=== PATIENT | female | born 1930 | race Caucasian/White ===

== ENCOUNTER 2017-06-16 19:30 | Inpatient (IN) ==
[2017-06-16 21:09] LABS: MANUAL DIFF NEEDED? NO
[2017-06-16 21:12] LABS: BASO% 0.2 % (0.0-0.8); EOS# 0.08 X1000 (0.0-0.7); EOS% 0.4 % (0.0-10.0); HEMATOCRIT 34.6 % (37.0-47.0); HEMOGLOBIN 11.1 g/dL (12.0-16.0); IMM GRAN# 0.04 X1000 (0.0-0.04); IMM GRAN% 0.2 % (0.0-0.5); LYMPH# 1.57 X1000 (1.2-3.4); LYMPH% 8.6 % (20.5-51.1); MCH 27.1 PG (27-31); MCHC 32.1 g/dL (33-37); MCV 84.4 FL (81-99); MONO# 1.02 X1000 (0.11-0.59); MONO% 5.6 % (1.7-9.3); MPV 9.9 FL (7.4-10.4); PLT 246 X1000 (130-400)
[2017-06-16 21:38] LABS: ALBUMIN 3.7 g/dL (3.5-5.0); CALCIUM 9.4 mg/dL (8.8-10.2); POTASSIUM 5.9 mmol/L (3.5-5.1); TOTAL BILIRUBIN 0.3 mg/dL (0.20-1.00); TOTAL PROTEIN 7.3 g/dL (6.3-8.3)
[2017-06-16] MEDS ORDERED: NS 1,000 ML IV ONE ×2 (22:02→23:22)
[2017-06-16] MEDS ORDERED: DERMABOND ONE (22:03)
--- NOTE | 2017-06-16 22:06 | Diag Imaging Result Doc PS360 ---
HEAD/C-SPINE W/O CONTRAST - 06/16/2017 INDICATION: head injury/pain TECHNIQUE: A CT dose reduction protocol was used. COMPARISON: 12/22/2015 FINDINGS: Head CT: There is a small forehead scalp contusion. No intracranial mass or hemorrhage. The ventricles and sulci are grossly normal. The sinuses are clear. Cervical spine: There is advanced cervical spondylosis. There is no acute injury or change from prior. IMPRESSION: 1. Small forehead scalp contusion but no intracranial injury. 2. No injury to the cervical spine. Electronically signed by David Carmen 06/16/2017 10:03 PM
[2017-06-16] MEDS ORDERED: MORPHINE IV ONE (22:09)
[2017-06-16] MEDS ORDERED: ZOFRAN IV ONE (22:09)
--- NOTE | 2017-06-16 22:16 | Diag Imaging Result Doc PS360 ---
LUMBAR SPINE 2-VIEWS - 06/16/2017 INDICATION: fall with back injury TECHNIQUE: COMPARISON: None FINDINGS: Alignment is anatomic. No evidence of fracture or subluxation. There is advanced degeneration at L5-S1 with severe narrowing, sclerosis, and vacuum disc phenomenon. There are some minimal degenerative osteophytes throughout the thoracolumbar spine diffusely. There is degeneration of the sacroiliac joints bilaterally. IMPRESSION: Degenerative changes. No acute disease. Electronically signed by David Carmen 06/16/2017 10:14 PM
[2017-06-16 23:06] LABS: BILIRUBIN URINE NEGATIVE (NEGATIVE); BLOOD URINE TRACE (NEGATIVE); CLARITY SL. CLOUDY (CLEAR); COLOR YELLOW; GLUCOSE URINE NEGATIVE (NEGATIVE); LEUKOCYTES URINE 2+ (NEGATIVE); NITRITE URINE NEGATIVE (NEGATIVE); PROTEIN URINE 1+(30 mg/dL) mg/dL (NEGATIVE); UROBILINOGEN URINE NORMAL
[2017-06-16 23:14] LABS: URINE WBC TNTC /HPF (<10)
[2017-06-16 23:15] LABS: URINE CULTURE PL NEEDED? YES; URINE EPITHELIAL CELLS <10 /HPF (<10); URINE RBC <10 /HPF (<10)
[2017-06-16 23:16] LABS: URINE SMALL ROUND CELLS TRANSITIONAL PRESENT; URINE SOURCE CLEAN CATCH
[2017-06-16] MEDS ORDERED: ROCEPHIN 1 GM/NS 1 GM/50 ML IVPB IV ONE (23:18)
[2017-06-16] MEDS ORDERED: MORPHINE IV PRN (23:24)
[2017-06-16] MEDS ORDERED: ZOFRAN IV PRN (23:24)
--- NOTE | 2017-06-17 02:34 | PROVIDER DOCUMENTATION ---
This chart was entered by Vivienne Noriega Scribe, acting as scribe for Javier Morejon MD. HPI-Musculoskeletal Pain/Inj - GENERAL Chief Complaint: Fall Stated Complaint: FALL Time Seen by Provider: 06/16/17 20:37 Source: patient - HX OF PRESENT ILLNESS-MUSKULOSKELTAL Nature of Presenting Problem: 87 Y/O F presents to ER with the complain of falling and hitting his back to nightstand this am. pt states that she was going to bathroom and fell. pt state that she is having pain in her neck, bilat arms and back. pt states that she took medication at home after she fell but later she started to hurting again and decided to come to ER for any injury. Onset/Duration: this morning Timing: still present - FALL INJURY Location of Pain/Injury: reports: neck, upper extremity, back Review of Systems - Adult - REVIEW OF SYSTEMS - ADULT Constitutional: reports: no symptoms reported Eyes: reports: other (R eye laceration). denies: double vision Ears, Nose, Mouth & Throat: reports: no symptoms reported Cardiovascular: reports: no symptoms reported Respiratory: reports: no symptoms reported Gastrointestinal: reports: nausea. denies: diarrhea, vomiting Genitourinary: reports: no symptoms reported Musculoskeletal: reports: back pain, neck pain, other (bilar arm pain) Integumentary: reports: no symptoms reported Neurological: reports: no symptoms reported Psychiatric: reports: no symptoms reported Endocrine: reports: no symptoms reported Hematologic/Lymphatic: reports: no symptoms reported Allergic/Immunologic: reports: no symptoms reported All Other Systems: Reviewed and Negative Past History - Adult - PAST MEDICAL HISTORY-ADULT Review of Records: reports: Old Records Reviewed, Nursing Assessment Review Major Childhood Illnesses: reports: denies history Cardiovascular: reports: CAD, HTN, hyperlipidemia, [place] Respiratory: reports: denies history Gastrointestinal: reports: cancer, GERD Obstetrical/Gynecological: reports: denies history Genitourinary: reports: kidney disease Musculoskeletal: reports: arthritis Neurological: reports: denies history Endocrine/Immune: reports: denies history Other Conditions: reports: denies history - PRIOR SURGERIES/PROCEDURES Surgical/Procedure History: reports: appendectomy, cholecystectomy, hysterectomy , BTL, orthopedic (extremity) (LT foot), joint replacement (total knee), 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 negative: decresed ROM, swelling Respiratory: chest non-tender, lungs clear Cardiovascular: normal peripheral pulses, regular rate, rhythm Abdominal Exam: non tender, soft Back Exam: CVA tenderness. negative: no vertebral tenderness Extremity: tenderness (R leg and bilat arms). negative: swelling Integumentary: normal color, warm/dry Neurologic: gas welder II-XII nml as tested, grossly normal, no motor/sensory deficits Psych/Mental Status: normal mood/affect, normal thought content, normal thought process, oriented x 3 Progress - PLAN OF CARE/RESULTS Progress/Plan/Lab Results: Vital Signs - 8 hr 06/16/17 20:24 06/16/17 21:41 06/16/17 23:22 Temperature 99.3 F 99.6 F Pulse Rate 54 L 57 L 59 L Respiratory Rate 18 18 18 Blood Pressure 148/65 159/066 151/67 O2 Sat by Pulse Oximetry 97 99 Laboratory Results - last 24 hr 06/16/17 06/16/17 06/16/17 21:06 21:06 22:46 WBC 18.27 H RBC 4.10 L Hgb 11.1 L Hct 34.6 L MCV 84.4 MCH 27.1 MCHC 32.1 L RDW Std Deviation 15.3 H Plt Count 246 MPV 9.9 Immature Gran % (Auto) 0.2 Neut % (Auto) 85.0 H Lymph % (Auto) 8.6 L [place] % (Auto) 5.6 Eos % (Auto) 0.4 Baso % (Auto) 0.2 Immature Gran # (Auto) 0.04 Neut # (Auto) 15.53 H Lymph # (Auto) 1.57 [place]calfe # (Auto) 1.02 H Eos # (Auto) 0.08 Baso # (Auto) 0.03 Sodium 136 Potassium 5.9 H Chloride 106 Carbon Dioxide 20 L Anion Gap 11 BUN 58 H Creatinine 2.4 H Estimated GFR/1.73 m2 19 BUN/Creatinine Ratio 24 Glucose 137 H Calculated Osmolality 290 Calcium 9.4 Total Bilirubin 0.30 AST 18 ALT 15 Alkaline Phosphatase 77 Total Protein 7.3 Albumin 3.7 Globulin 4.0 Albumin/Globulin Ratio 1.0 Urine Source CLEAN CATCH Urine Color YELLOW Urine Clarity SL. CLOUDY A Urine pH 5.0 Ur Specific [place] 1.010 Urine Protein 1+(30 mg/dL) A Urine Ketones NEGATIVE Urine Blood TRACE Urine Nitrite NEGATIVE Urine Bilirubin NEGATIVE Urine Urobilinogen NORMAL Urine Microscopic RBC <10 Urine WBC 2+ A Urine Microscopic WBC TNTC A Ur Epithelial Cells <10 Small Round Cells TRANSITIONAL PRESENT Urine Bacteria 4+ Urine Yeast PRESENT Urine Glucose NEGATIVE Orders Category Date Time Status Admit - [facility] Routine AdmDCTranf 06/16/17 23:22 Ordered Activity - Bed Rest with BRP ORDERED Care 06/16/17 23:24 Active Vital Signs Order ARRIVAL TO ROOM Care 06/16/17 23:22 Completed Regular Diet Diet 06/16/17 23:24 Active HEAD/C-SPINE W/O CONTRAST [CT] Stat Exams 06/16/17 20:42 Completed LUMBAR SPINE 2-VIEWS [RAD] Stat Exams 06/16/17 20:43 Completed CBC WITH ELECTRONIC DIFF [HEME] Stat Lab 06/16/17 21:06 Completed CMP [COMPREHENSIVE METABOLIC PANEL] [CHEM] Stat Lab 06/16/17 21:06 Completed URINE CULTURE [RM] Routine Lab 06/16/17 23:16 Ordered ua [URINALYSIS PL W/POSS RFLX CULT] [URINALYSIS] Stat Lab 06/16/17 22:46 Completed 0.9% Sodium Chloride Inj [Ns] 1,000 ml Med 06/16/17 23:22 Active IV 75 mls/hr 0.9% Sodium Chloride Inj [Ns] 1,000 ml Med 06/16/17 22:02 Discontinued IV 999 mls/hr CefTRIAXONE 1 GM/NS [Rocephin 1 gm/Ns] Med 06/16/17 23:18 Discontinued 1 gm in 50 ml IV NOW Cyanoacrylate Tissue Adhesive [Dermabond] Med 06/16/17 22:03 Discontinued 1 each .ROUTE .STK-MED ONE Morphine Med 06/16/17 23:24 Active 2 mg IV Q2H PRN PRN Morphine Med 06/16/17 22:09 Discontinued 4 mg IV NOW ONE Ondansetron [Zofran] Med 06/16/17 22:09 Discontinued 4 mg IV NOW ONE Ondansetron [Zofran] Med 06/16/17 23:24 Active 4 mg IV Q4H PRN PRN EKG [EKG] Stat Ther 06/16/17 20:42 Ordered Transfer/Admit Order [TRANSFER] Routine Transfer 06/16/17 23:25 Completed Result Diagrams: 06/16/17 21:06 06/16/17 21:06 - XRAY 1 XRAY Study: Lumbar Spine Impression: Normal XRAY Interpretation: degenerative chanhes no acute disease by radiologist - CT/MRI 1 CT Study: Cervical Spine, Head Impression: See EMR Report CT Results: small forehead scalp contusion but no intracranial injurynoinjury Cindi-spine - CONSULTS/PCP/HOSPITALIST Notification #1 *Consult/PCP/Hospitalist*: Dr. Bella Time Discussed: 23:20 Reason/Comments: discussed about pt Consult Disposition: Admit Procedures - LACERATION/WOUND REPAIR/FB Right Eye Wound Length: 1.5 cm Wound's Depth, Shape: superficial Wound Repaired with: Dermabond Sterile Dressing Applied?: Yes Splint Applied?: No Sling Applied?: No Post Procedure Neurovascular Exam: Intact Departure - Departure Date of Disposition Decision: 06/16/17 Time of Disposition Decision: 23:22 DIAGNOSIS: Acute renal failure syndrome, Hyperkalemia, UTI (urinary tract infection), Forehead laceration Disposition: ADMITTED INPATIENT 09 Certified Medical Emergency: Emergent Condition: Good - Critical Care Note This patient required my direct & personal management of CC.: No This chart was documented by the indicated scribe, (Vivienne Noriega Scribe) and accurately reflects the services I performed and decisions made by me, Javier Morejon MD, as attested by the provider's signature.
[2017-06-17] MEDS: TYLENOL PO PRN ×2 (03:40→10:40)
[2017-06-17] MEDS ORDERED: MORPHINE IV PRN (09:57)
[2017-06-17 09:59] LABS: MANUAL DIFF NEEDED? NO
[2017-06-17] MEDS ORDERED: NEXIUM PO SCH (10:00)
[2017-06-17 10:02] LABS: BASO% 0.1 % (0.0-0.8); EOS# 0.06 X1000 (0.0-0.7); EOS% 0.5 % (0.0-10.0); HEMATOCRIT 33.4 % (37.0-47.0); HEMOGLOBIN 10.2 g/dL (12.0-16.0); IMM GRAN# 0.02 X1000 (0.0-0.04); IMM GRAN% 0.2 % (0.0-0.5); LYMPH# 1.77 X1000 (1.2-3.4); LYMPH% 15.1 % (20.5-51.1); MCH 26.1 PG (27-31); MCHC 30.5 g/dL (33-37); MCV 85.4 FL (81-99); MONO# 0.91 X1000 (0.11-0.59); MONO% 7.8 % (1.7-9.3); NEUT% 76.3 % (42.2-75.2); PLT 222 X1000 (130-400); RBC 3.91 XMIL (4.2-5.4)
[2017-06-17] MEDS: BYSTOLIC PO SCH (10:31)
[2017-06-17] MEDS: APRESOLINE PO SCH ×2 (10:31→20:49)
[2017-06-17] MEDS: ROCEPHIN 1 GM/NS 1 GM/50 ML IVPB IV SCH (10:31)
[2017-06-17] MEDS: LOVAZA PO SCH ×2 (10:31→20:50)
[2017-06-17 10:32] LABS: CALCIUM 9.2 mg/dL (8.8-10.2)
[2017-06-17] MEDS: NS 1,000 ML IV SCH ×2 (10:40→12:06)
--- NOTE | 2017-06-17 14:25 | HISTORY AND PHYSICAL ---
PRIMARY CARE PHYSICIAN: Dr. Caleb Hebert. CHIEF COMPLAINT: Fall at home and hitting her forehead on her nightstand and her back. HISTORY OF PRESENTING ILLNESS: This is an 87-year-old female who presented to [facility] ER after she stated that she got up to go to the bathroom and fell hitting her right forehead above her eyebrow and then hitting her right shoulder on her nightstand. When she arrived to the emergency room, she was noted to have right eye laceration above her right eyebrow at 1.5 cm. They were able to the Dermabond it in the emergency room. Workup in the ER showed a white blood cell count of 18.27, a potassium of 5.9, a creatinine of 2.4 with a baseline of around 1.5. Her urinalysis was negative nitrites but 2+ white blood cells and 4+ bacteria. So, she was admitted for further evaluation and treatment. PAST MEDICAL HISTORY: Diabetes type 2, hypertension, hyperlipidemia, and depression, coronary artery disease, [place], and chronic kidney disease. PAST SURGICAL HISTORY: Heart catheterization. FAMILY HISTORY: Noncontributory. SOCIAL HISTORY: She currently lives with her daughter. Denies any tobacco, alcohol, or illicit drug use. ALLERGIES: Vytorin, iodine, Corgard, Talwin, Inderal, Crestor, tetanus, Procardia, Tenormin, clonidine, and Avandia. HOME MEDICATIONS: 1. Norvasc 10 mg p.o. at bedtime. 2. Aspirin 81 mg p.o. at bedtime. 3. Flexeril 10 mg p.o. t.i.d. p.r.n. 4. Nexium 40 mg p.o. daily. 5. Lasix 40 mg p.o. daily will be held. 6. Glipizide 10 mg p.o. b.i.d. will be held. 7. Apresoline 100 mg p.o. b.i.d. 8. Toujeo 20 units subcutaneous at bedtime. 9. Lisinopril 40 mg p.o. daily will be held. 10. Bystolic 10 mg p.o. daily. 11. Macrobid 100 mg p.o. daily will be held. 12. Lovaza 1 g p.o. b.i.d. 13. Zoloft 50 mg p.o. at bedtime. 14. Tramadol 50 mg p.o. b.i.d. p.r.n. LABORATORY DATA: White blood cell count of 18.27, hemoglobin 11.1, hematocrit 34.6, platelets 246,000. Sodium 136, potassium 5.9, chloride 106, CO2 of 20. BUN of 58, creatinine 2.4, glucose 137. Urinalysis with negative nitrites with 2+ white blood cells, 4+ bacteria. CT of the head cervical spine showed a small forehead scalp contusion but no intracranial injury and no injury to the cervical spine. Lumbar spine x-ray showed degenerative changes but no acute disease. REVIEW OF SYSTEMS: She denied any blurred vision. She had some mild dizziness. Denied any chest pain, coughing, shortness of breath. Denied any abdominal pain, constipation, diarrhea, nausea, vomiting or burning or hurting with urination. PHYSICAL EXAMINATION: VITAL SIGNS: On arrival, she had a temperature of 99.3 degrees, pulse of 54, respirations 18, blood pressure 148/65, saturating 97% to 99% on room air. GENERAL: This is an 87-year-old female who is lying in the bed, and answers questions appropriately. HEENT: Normocephalic and atraumatic. She is noted to have a 1.5 cm laceration above her right eyebrow that was Dermabond in the emergency room. The pupils are equal, round, reactive to light. Extraocular movements are intact. Oropharynx and nares are clear. NECK: Supple. LUNGS: Clear to auscultation bilaterally with equal lung expansion and chest wall movement. HEART: Regular rate and rhythm. No murmurs, rubs, or gallops. ABDOMEN: Soft, nontender, nondistended. Bowel sounds are present x4 quadrants. EXTREMITIES: No clubbing, cyanosis, or edema. The patient does state that she has some pain in her right shoulder and arm from the fall. NEUROLOGICAL: The cranial nerves 2-12 appear grossly intact. ASSESSMENT: 1. Fall. 2. Hyperkalemia. 3. Acute kidney injury on chronic kidney disease. 4. Urinary tract infection. 5. Hypertension. PLAN: She has been admitted to the medical unit at [facility]. We are going to check a BMP and a CBC this a.m. Urine culture is pending. We will continue her Rocephin 1 gram IV q. 24 with urine culture pending. Continue her normal saline at 75 mL an hour. Continue her home medications as previously identified. Morphine 2 mg IV q. 2 hours p.r.n. and recheck labs in a.m. Dictated by MARYSE Hernandez for Casa Zuniga MD cc: MARYSE Hernandez MD Kenneth E. Mashburn, MD pt examined, agree with above APENOT MTDD
[2017-06-17] MEDS: ULTRAM PO PRN (16:01)
[2017-06-17] MEDS: LIDODERM TOP SCH (16:26)
[2017-06-17] MEDS: NORVASC PO SCH (20:49)
[2017-06-17] MEDS: ZOLOFT PO SCH (20:49)
[2017-06-17] MEDS: ASPIRIN PO SCH (20:49)
[2017-06-17] MEDS: TOUJEO SOLOSTAR SUBQ SCH (20:51)
[2017-06-17] MEDS ORDERED: INSULIN PEN NEEDLES ONE (21:00)
[2017-06-18] MEDS: NEXIUM PO SCH (06:37)
[2017-06-18] MEDS: ULTRAM PO PRN (06:38)
[2017-06-18] MEDS: NS 1,000 ML IV SCH ×2 (07:20→23:00)
[2017-06-18 07:23] LABS: MANUAL DIFF NEEDED? NO
[2017-06-18 07:25] LABS: BASO% 0.3 % (0.0-0.8); EOS# 0.18 X1000 (0.0-0.7); EOS% 1.7 % (0.0-10.0); HEMATOCRIT 36.2 % (37.0-47.0); HEMOGLOBIN 11.3 g/dL (12.0-16.0); IMM GRAN# 0.06 X1000 (0.0-0.04); IMM GRAN% 0.6 % (0.0-0.5); LYMPH# 1.92 X1000 (1.2-3.4); LYMPH% 17.8 % (20.5-51.1); MCH 26.8 PG (27-31); MCHC 31.2 g/dL (33-37); MCV 85.8 FL (81-99); MONO# 0.96 X1000 (0.11-0.59); MONO% 8.9 % (1.7-9.3); MPV 10.4 FL (7.4-10.4); NEUT% 70.7 % (42.2-75.2); PLT 247 X1000 (130-400); RBC 4.22 XMIL (4.2-5.4)
[2017-06-18 08:00] LABS: CALCIUM 9.8 mg/dL (8.8-10.2); POTASSIUM 5.5 mmol/L (3.5-5.1)
[2017-06-18] MEDS: BYSTOLIC PO SCH (08:22)
[2017-06-18] MEDS: APRESOLINE PO SCH ×2 (08:23→20:14)
[2017-06-18] MEDS: LOVAZA PO SCH ×2 (08:23→20:13)
[2017-06-18] MEDS: LIDODERM TOP SCH (08:24)
[2017-06-18] MEDS: TYLENOL PO PRN (10:38)
[2017-06-18] MEDS: FLEXERIL PO PRN (10:39)
[2017-06-18] MEDS: ROCEPHIN 1 GM/NS 1 GM/50 ML IVPB IV SCH (10:47)
--- NOTE | 2017-06-18 15:55 | PROGRESS NOTE ---
DATE: 06/18/2017 SUBJECTIVE: Patient notes she is having a headache and neck pain. States she has been having neck pain off and on for several weeks prior to her recent fall. Notes she is not sleeping well. OBJECTIVE: Vital signs: Temperature 97, pulse 46, respiratory 18, BP 151/43 to 172/45, saturation 98% on room air. General: Patient is awake, alert, oriented, currently in no real respiratory distress. Pleasant to talk with. Neck: Supple. CV: Regular rate. Chest: Clear. Abdomen: Soft. Extremities: Moves all extremities. ASSESSMENT: 1. Bradycardia. Will decrease Bystolic to 5 mg. 2. Leukocytosis. Continues to improve. White count went from 18 down to 10. 3. Anemia of chronic disease. 4. Hyperkalemia was actually improved yesterday but back up to 5.5 today. Will continue IV fluids. 5. Acute on chronic renal failure. BUN and creatinine both are her improved although slowly. Uncertain of what her baseline is. Certainly appears back to her chronic baseline of May of 2016 she was 2.0. 6. Gram-negative yoselin urinary tract infection. Will continue antibiotics. 7. Hyperglycemia. Will add sliding scale insulin and will follow. cc: Jose Bella MD
[2017-06-18] MEDS: HUMALOG DOSE (PARKWAY) SUBQ SCH ×2 (17:31→20:16)
[2017-06-18] MEDS: ASPIRIN PO SCH (20:12)
[2017-06-18] MEDS: RESTORIL PO PRN (20:12)
[2017-06-18] MEDS: ZOLOFT PO SCH (20:12)
[2017-06-18] MEDS: TOUJEO SOLOSTAR SUBQ SCH (20:13)
[2017-06-18] MEDS: NORVASC PO SCH (20:14)
[2017-06-19] MEDS: ULTRAM PO PRN (02:51)
[2017-06-19] MEDS: NEXIUM PO SCH (06:20)
[2017-06-19] MEDS: HUMALOG DOSE (PARKWAY) SUBQ SCH ×4 (06:21→20:33)
[2017-06-19 06:47] LABS: HEMOGLOBIN 9.5 g/dL (12.0-16.0); MCH 26.6 PG (27-31); MCHC 30.6 g/dL (33-37); MCV 86.8 FL (81-99); MPV 10.1 FL (7.4-10.4); RBC 3.57 XMIL (4.2-5.4)
[2017-06-19 06:52] LABS: AGAP 6; ALBUMIN 2.8 g/dL (3.5-5.0); ALKALINE PHOSPHATASE 85 U/L (32-104); BUN 42 mg/dL (8-22); CALCIUM 9.1 mg/dL (8.8-10.2); CHLORIDE 112 mmol/L (98-107); COSMO 291; GOT 14 U/L (10-30); GPT 13 U/L (10-36); MAGNESIUM 1.6 mg/dL (1.5-2.7); POTASSIUM 5.9 mmol/L (3.5-5.1); SODIUM 138 mmol/L (136-145); TCO2 21 mmol/L (25-35); TOTAL BILIRUBIN < 0.15 mg/dL (0.20-1.00); TOTAL PROTEIN 6.1 g/dL (6.3-8.3)
[2017-06-19] MEDS ORDERED: LEVAQUIN PO SCH (09:00)
--- NOTE | 2017-06-19 09:11 | PROGRESS NOTE ---
DATE: 06/19/2017 SUBJECTIVE: Patient still complains of neck pain and leg pain. She states that she has got chronic left knee pain and has been told in the past that she needs a knee replacement but has also been told that she is not a candidate to have elective surgery. OBJECTIVE: Vital Signs: Reviewed. Temperature 98 degrees, pulse 54, respiratory rate 18, BP 149/44, saturation 94% on room air. General: Patient is awake, alert, currently in no real respiratory distress. Pleasant to talk with. Neck: Supple. CV: Regular rate. Chest: Clear. Abdomen: Soft. Extremities: She is noted to move all extremities. Is having some pain in her left lower extremity with movement. ASSESSMENT: 1. Hypertension. Blood pressure is elevated slightly after a decrease in Bystolic from 10 to 5. 2. Bradycardia. Heart rate actually has improved slightly when decreasing Bystolic from 10 to 5. 3. Hyperkalemia. The patient's potassium has increased back to 5.9. Creatinine has remained at her baseline of 2.1. Glucose 185. 4. Mild protein calorie malnutrition. 5. Urinary tract infection with Enterobacter aerogenes. It is pansensitive. She currently is on Rocephin. We will change this to Levaquin. PLAN: The patient is actually not on an TIFFANIE inhibitor or an ARB that would elevate her potassium. We will place her on Lasix which she was on at home in an attempt to get rid of the potassium. She was on an TIFFANIE inhibitor at home but this was held 3 days ago and her potassium is still elevating. We will continue to follow. Hopefully, home in the next 1-2 days. cc: Jose Bella MD
[2017-06-19] MEDS: LOVAZA PO SCH ×2 (09:20→20:41)
[2017-06-19] MEDS: BYSTOLIC PO SCH (09:21)
[2017-06-19] MEDS: LIDODERM TOP SCH (09:21)
[2017-06-19] MEDS: APRESOLINE PO SCH ×2 (09:21→20:41)
[2017-06-19] MEDS: LASIX PO SCH (09:21)
[2017-06-19] MEDS: FLEXERIL PO PRN (09:43)
[2017-06-19] MEDS: NS 1,000 ML IV SCH ×2 (10:39→23:55)
[2017-06-19] MEDS ORDERED: INSULIN PEN NEEDLES ONE (20:31)
[2017-06-19] MEDS: RESTORIL PO PRN (20:40)
[2017-06-19] MEDS: NORVASC PO SCH (20:41)
[2017-06-19] MEDS: ZOLOFT PO SCH (20:41)
[2017-06-19] MEDS: ASPIRIN PO SCH (20:41)
[2017-06-19] MEDS: TOUJEO SOLOSTAR SUBQ SCH (20:42)
--- NOTE | 2017-06-19 23:57 | CONSULTATION ---
DATE OF CONSULTATION: 06/19/2017 CHIEF COMPLAINT: Right knee pain. HISTORY OF PRESENT ILLNESS: Ms. Romero is a 87-year-old female who is experiencing chronic right knee pain and she was admitted for a fall in her home where she hit her forehead. She had a total knee arthroplasty in her right knee several years prior and she has been worked up and followed by Dr. Dewitt in [place] who determine that she has loosening of her artificial joint in her right knee. She has not proceeded with surgery with him at this time due to medical reasons but she is experiencing continued right knee pain and we are asked to further evaluate. Past medical history, past surgical history, family history, allergies and home medications see admission history and physical. REVIEW OF SYSTEMS: Ten point review of systems was performed the patient was negative other than what was stated in the HPI above. PHYSICAL EXAMINATION: General: She is a well-developed, well-nourished female. She is alert, oriented and cooperative with examination. She is in no acute distress. HEENT : Head is normocephalic, atraumatic. Neck: Supple. Heart: Regular rate and rhythm. Lungs: Clear to auscultation bilaterally. Abdomen: Soft, is nondistended. Bowel sounds are present. Neurologic: She discerned soft touch to the right leg, her right leg is neurovascularly intact. Extremities: Right knee. She has limited range of motion of her right knee due to pain. There is a well healed incision of her right knee. There is no ecchymosis noted. She had 2+ pedal pulses bilaterally. Her knee is otherwise stable to exam. ASSESSMENT: Chronic right knee pain with a right total knee arthroplasty. PLAN: I have instructed her to use her front wheel walking while ambulating continue ambulating with her walker. I have instructed for her to follow up with Dr. Dewitt in [place] upon discharge for further evaluation. Dictated by FLAVIA Vale for Kennedy Lee MD cc: FLAVIA Vale MD [facility]
[2017-06-20] MEDS: HUMALOG DOSE (PARKWAY) SUBQ SCH (06:17)
[2017-06-20] MEDS: NEXIUM PO SCH (06:18)
[2017-06-20 06:54] LABS: HEMATOCRIT 30.6 % (37.0-47.0); HEMOGLOBIN 9.5 g/dL (12.0-16.0); MCH 26.8 PG (27-31); MCV 86.2 FL (81-99); MPV 10.5 FL (7.4-10.4); RBC 3.55 XMIL (4.2-5.4)
[2017-06-20 07:21] LABS: ALBUMIN 2.9 g/dL (3.5-5.0); CALCIUM 9.1 mg/dL (8.8-10.2); POTASSIUM 4.8 mmol/L (3.5-5.1); TOTAL BILIRUBIN 0.2 mg/dL (0.20-1.00); TOTAL PROTEIN 6.4 g/dL (6.3-8.3)
[2017-06-20 07:41] VITALS: BP 147/47
[2017-06-20] MEDS: LIDODERM TOP SCH (09:12)
[2017-06-20] MEDS: LASIX PO SCH (09:13)
[2017-06-20] MEDS: APRESOLINE PO SCH (09:13)
[2017-06-20] MEDS: BYSTOLIC PO SCH (09:13)
[2017-06-20] MEDS: LOVAZA PO SCH (09:13)
--- NOTE | 2017-06-21 06:39 | DISCHARGE SUMMARY ---
ADMISSION DATE: 06/17/2017 DISCHARGE DATE: 06/20/2017 DIAGNOSES: 1. Hypertension. 2. Bradycardia. 3. Hyperkalemia resolved. 4. Mild protein calorie malnutrition. 5. Urinary tract infection with Enterobacter aerogenes pansensitive currently on Levaquin. 6. Chronic kidney disease looks like with a baseline creatinine of 2 to 2.2. 7. Chronic right knee pain. DIAGNOSTICS: 1. 06/16/2017: CT of the head and cervical spine revealed small forehead scalp contusion with no intracranial injury. No injury to the cervical spine. 2. 06/16/2017 lumbar spine x-ray showed degenerative changes with no acute disease. CONSULTANTS: [facility]. MICROBIOLOGY: Urine culture revealed Enterobacter aerogenes. HOSPITAL COURSE: Ms. Romero presented to the emergency room after falling and hitting her forehead. CT scan of the head and C-spine were clear. She did have a lack above her right eye which was Dermabonded in the emergency room. It continues to be intact throughout the hospitalization. She was noted to have an elevated white blood cell count of 18.2 with a potassium of 5.9, and creatinine of 2.4. Urine culture revealed Enterobacter for which she was started on Rocephin. She has been transitioned to Levaquin p.o. She received gentle hydration. Creatinine did return to her norm. Actually it is better than it has been in a while, she did drop to 1.7. We did trend vital signs. We continued her home medications. During the hospitalization, she complained of right knee pain intermittently sometimes saying that she could not bear weight. She does have a long history of right knee pain. She did state that she had seen orthopedics multiple times and has been told that she did need surgery to replace the artificial joint in her right knee although there was no guarantee that this would help, and there was a question of her being able to live through the surgery. Therefore, surgery has not been an option. We did consult orthopedics who recommended that she follow up with her doctors in [place]. Regarding any future care. In talking with the patient, she did state that she has had frequent falls. Most of the falls come when she is getting out of bed. She did state that she keeps her walker at the foot of her bed not at her side and that the falls happen from standing and walking down to the foot of her bed to get her walker. She has been cautioned by myself, Dr. Bella, orthopedics and physical therapy of the importance of keeping her walker at her side for her safety. PHYSICAL EXAMINATION: Cardiovascular: Regular rate and rhythm. S1, S2 appreciated. Pulmonary: Breath sounds are clear with no increased work of breathing noted. Gastrointestinal: Abdomen is soft, nontender, and nondistended with bowel sounds in all 4 quadrants. Extremities: No clubbing, cyanosis, or edema. Calves nontender. Pulses are palpable x4. Neurologic: She is alert and oriented x3. Cranial nerves 2-12 grossly intact. DISCHARGE MEDICATIONS: 1. Ultram 50 mg p.o. b.i.d. p.r.n. 2. Restoril 7.5 at bedtime p.r.n. 3. Zoloft 50 mg at bedtime. 4. Bystolic 5 mg daily. This was decreased from 10 mg. 5. Lidoderm patch daily as directed. Hydralazine 100 mg b.i.d. 6. Glucotrol 10 mg b.i.d. 7. Lisinopril 40 mg daily. 8. Lasix 40 mg daily. 9. Aspirin 81 mg at bedtime. 10. Flexeril 10 mg t.i.d. p.r.n. 11. Nexium 40 mg daily. 12. Norvasc 10 mg at bedtime. 13. insulin 20 units at bedtime. 14. Levaquin 500 mg p.o. every 48 hours x7 doses. FOLLOWUP: 1. She needs to call Dr. Dewitt orthopedics in [place] to schedule an appointment for follow up. 2. Dr. Baez in 1-2 weeks. 3. She is being discharged home in stable condition with family members. TIME SPENT: This is a greater than 30 minute discharge. Dictated by MARYSE Christianson for Jose Bella MD cc: MARYSE Christianson MD
[2017-06-21] MEDS ORDERED: LEVAQUIN PO SCH (09:00)
== END 2017-06-20 11:30 | disposition home or self-care (01) ==
LOC: P.ED 19:30 → SUATTDRO 06-17 00:17 → P.MEDSURG 06-17 00:17
PROVIDERS: ATTEND Family Medicine

== ENCOUNTER 2017-07-15 13:37 | Inpatient (IN) ==
[2017-07-15] MEDS ORDERED: NS 1,000 ML IV ONE (14:05)
[2017-07-15] MEDS ORDERED: D50W SYRINGE IV ONE (14:05)
[2017-07-15] MEDS ORDERED: D10W 250 ML IV ONE (14:05)
[2017-07-15] MEDS ORDERED: D10W 500 ML IV ONE (14:45)
[2017-07-15 15:12] LABS: BASO% 0.1 % (0.0-0.8); EOS# 0.05 X1000 (0.0-0.7); EOS% 0.3 % (0.0-10.0); HEMATOCRIT 35.6 % (37.0-47.0); HEMOGLOBIN 11.4 g/dL (12.0-16.0); IMM GRAN# 0.07 X1000 (0.0-0.04); IMM GRAN% 0.4 % (0.0-0.5); LYMPH# 0.99 X1000 (1.2-3.4); MANUAL DIFF NEEDED? NO; MCH 26.6 PG (27-31); MCV 83.2 FL (81-99); MONO# 1.34 X1000 (0.11-0.59); MONO% 6.8 % (1.7-9.3); MPV 10.3 FL (7.4-10.4); NEUT% 87.4 % (42.2-75.2); PLT 377 X1000 (130-400); RBC 4.28 XMIL (4.2-5.4)
[2017-07-15 15:14] LABS: URINE MICRO REVIEW NEEDED? NO; URINE SOURCE CATH
[2017-07-15 15:18] LABS: BILIRUBIN URINE NEGATIVE (NEGATIVE); BLOOD URINE NEGATIVE (NEGATIVE); COLOR YELLOW; GLUCOSE URINE NEGATIVE (NEGATIVE); LEUKOCYTES URINE SMALL (NEGATIVE); NITRITE URINE NEGATIVE (NEGATIVE); PROTEIN URINE NEGATIVE (NEGATIVE); SP GRAVITY URINE 1.009; TURBIDITY URINE CLEAR (CLEAR); UROBILINOGEN URINE NORMAL (NORMAL)
[2017-07-15 15:19] LABS: INR 1.02; PROTIME 10.7 Seconds (9.2-11.7); UR EPITHELIAL CELLS <10 /HPF (<10); URINE BACTERIA NEGATIVE /HPF; URINE CULTURE NEEDED? YES; URINE RBC <10 /HPF (<10)
[2017-07-15 15:28] LABS: ALBUMIN 3.6 g/dL (3.5-5.0); CALCIUM 9.3 mg/dL (8.8-10.2); POTASSIUM 5.5 mmol/L (3.5-5.1); TOTAL BILIRUBIN 0.27 mg/dL (0.20-1.00); TOTAL PROTEIN 7.4 g/dL (6.3-8.3)
[2017-07-15] MEDS ORDERED: ROCEPHIN 1 GM/NS 1 GM/50 ML IVPB IV ONE (16:23)
--- NOTE | 2017-07-15 16:58 | PROVIDER DOCUMENTATION ---
This chart was entered by Amairani Soto Scribe, acting as scribe for Manny Wynne MD. HPI-General Adult - General Chief Complaint: Weakness Stated Complaint: WEAKNESS X 2WEEKS Time Seen by Provider: 07/15/17 13:41 Source: patient Allergies/Adverse Reactions: Patient Allergies Allergy/AdvReac Type Severity Reaction Status Date / Time ezetimibe Allergy Severe ANAPHYLAXIS Verified 07/15/17 14:31 [From Vytorin 10-10] iodine Allergy Severe ANAPHYLAXIS Verified 07/15/17 14:31 nadolol [From Corgard] Allergy Severe ANAPHYLAXIS Verified 07/15/17 14:31 pentazocine lactate * Allergy Severe ANAPHYLAXIS Verified 07/15/17 14:31 [From Talwin] propranolol HCl * Allergy Severe ANAPHYLAXIS Verified 07/15/17 14:31 [From Inderal LA] rosuvastatin calcium * Allergy Severe ANAPHYLAXIS Verified 07/15/17 14:31 [From Crestor] simvastatin Allergy Severe ANAPHYLAXIS Verified 07/15/17 14:31 [From Vytorin 10-10] Tetanus Vaccines and Toxoid Allergy Severe ANAPHYLAXIS Verified 07/15/17 14:31 [Tetanus] nifedipine [From Procardia] Allergy Unknown Unknown Verified 07/15/17 14:31 atenolol [From Tenormin] AdvReac Intermediate Unknown Verified 07/15/17 14:31 clonidine AdvReac SHORTNESS Verified 07/15/17 14:31 OF BREATH rosiglitazone maleate * AdvReac Unknown Verified 07/15/17 14:31 [From Avandia] Home Medications: Home Medication List Medication Instructions Recorded Confirmed Last Taken Type Aspirin 81 mg PO HS 10/12/12 07/15/17 1 Day Ago History Glipizide [Glucotrol] 10 mg PO BID 10/12/12 07/15/17 07/15/17 History Gloster-3 Acid Ethyl Esters [Lovaza] 1 gm PO BID 10/12/12 07/15/17 1 Day Ago History Sertraline [Zoloft] 50 mg PO QHS 08/10/14 07/15/17 1 Day Ago History Esomeprazole [Nexium] 40 mg PO DAILY 10/05/14 07/15/17 07/15/17 History Amlodipine Besylate 10 mg PO QHS 06/17/15 07/15/17 1 Day Ago History Nebivolol HCl [Bystolic] 10 mg PO DAILY 06/17/15 07/15/17 07/15/17 History Furosemide [Lasix] 40 mg PO DAILY 12/22/15 07/15/17 07/15/17 History Hydralazine [Apresoline] 100 mg PO BID 12/26/15 07/15/17 07/15/17 History Lisinopril [Zestril] 40 mg PO DAILY 05/29/16 07/15/17 07/15/17 History Cyclobenzaprine [Flexeril] 10 mg PO TID PRN 06/17/17 07/15/17 1 Day Ago History Insulin Glargine,Hum.rec.anlog 20 unit SQ QHS 06/17/17 07/15/17 1 Day Ago History [Mervin Barnett] Tramadol [Ultram] 50 mg PO BID PRN 06/17/17 07/15/17 1 Day Ago History - History of Present Illness -Gen Adult Nature of Presenting Problems: Pt is a 87 year old female who came to the ED with a cc of general weakness for over a week. Pt reports her bones hurt and she is unable to get up and walk on her own. pt blood sugar was low today. Location of Pain/Injury: reports: generalized Quality of Pain: reports: aching Onset/Duration: reports: other (two weeks) Timing: reports: still present Context/Activities at Onset: reports: none Associated Symptoms: reports: weakness Similar Symptoms Previously?: Yes Recently seen or treated by another doctor?: Yes Review of Systems - Adult - REVIEW OF SYSTEMS - ADULT Constitutional: denies: chills, fever Eyes: reports: no symptoms reported Ears, Nose, Mouth & Throat: denies: loose teeth, throat swelling Cardiovascular: reports: no symptoms reported Respiratory: denies: cough, shortness of breath Gastrointestinal: reports: poor appetite. denies: diarrhea, nausea, vomiting Genitourinary: reports: no symptoms reported Musculoskeletal: reports: muscle weakness. denies: joint swelling, neck pain Integumentary: reports: no symptoms reported Neurological: reports: no symptoms reported Psychiatric: reports: no symptoms reported Endocrine: reports: no symptoms reported Hematologic/Lymphatic: reports: no symptoms reported Allergic/Immunologic: reports: no symptoms reported All Other Systems: Reviewed and Negative Past History - Adult - PAST MEDICAL HISTORY-ADULT Review of Records: reports: Old Records Reviewed, Nursing Assessment Review Major Childhood Illnesses: reports: denies history Cardiovascular: reports: CAD, HTN, hyperlipidemia, [place] Respiratory: reports: denies history Gastrointestinal: reports: cancer, GERD Obstetrical/Gynecological: reports: denies history Genitourinary: reports: kidney disease Musculoskeletal: reports: arthritis Neurological: reports: denies history Endocrine/Immune: reports: denies history Other Conditions: reports: denies history - PRIOR SURGERIES/PROCEDURES Surgical/Procedure History: reports: appendectomy, cholecystectomy, hysterectomy , BTL, orthopedic (extremity) (LT foot), joint replacement (total knee), back/ neck (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) - PRIOR HOSPITALIZATIONS Prior Hospitalizations: reports: for other non-related - IMMUNIZATION STATUS Childhood Immunizations: See Nurse Assessment Flu Vaccine: See Nurse Assessment - FAMILY HISTORY Family History: reviewed, not pertinent Physical Exam-General - PHYSICAL EXAM-ADULT Initial Vital Signs Reviewed: Yes - CONSTITUTIONAL General Appearance: alert, mild distress - EYES Eyes: PERRL/EOMI, pink conjunctivae - HEAD, EARS, NOSE, MOUTH & THROAT HENMT: normocephalic/atraumatic, moist mucous membranes - NECK Neck: non-tender, full range of motion - RESPIRATORY Respiratory: chest non-tender, lungs clear, normal breath sounds - CARDIOVASCULAR Cardiovascular: normal peripheral pulses, regular rate, rhythm - GASTROINTESTINAL (ABDOMEN) Abdominal Exam: normal bowel sounds, non tender, soft - MUSCULOSKELETAL Back Exam: normal inspection, no CVA tenderness Extremity: pedal edema. negative: normal gait - SKIN Integumentary: normal color, normal turgor - NEUROLOGIC Neurologic: grossly normal - PSYCHIATRIC Psych/Mental Status: normal mood/affect, normal thought content, normal thought process, oriented x 3 Progress - PLAN OF CARE/RESULTS Progress/Plan/Lab Results: Vital Signs - 8 hr 07/15/17 13:59 Temperature 99.3 F Pulse Rate 56 L Respiratory Rate 19 Blood Pressure 138/67 O2 Sat by Pulse Oximetry 95 Laboratory Results - last 24 hr 07/15/17 13:53 POC Glucose 47 L D Result Diagrams: 07/15/17 14:50 07/15/17 14:30 - EKG 1 Time of EKG reading by physician:: 13:40 EKG Read and Signed by:: Manny Wynne EKG Interpretation (*Must complete 3 of following elements*): Abnormal Rate: 57 - CONSULTS/PCP/HOSPITALIST Notification #1 *Consult/PCP/Hospitalist*: Dr. Alexis/Paloma Time Discussed: 16:57 Consult Disposition: Will see in ED, Admit Departure - Departure Date of Disposition Decision: 07/15/17 Time of Disposition Decision: 16:57 DIAGNOSIS: Acute on chronic renal failure, Dehydration, Hypoglycemia Disposition: ADMITTED INPATIENT 09 Certified Medical Emergency: Emergent Condition: Stable Referrals and Follow-Ups: Caleb Hebert MD [Primary Care Provider] - - Critical Care Note This patient required my direct & personal management of CC.: Yes Total Time (mins): 30 Critical Care Statement: This patient required my direct personal management to treat or rule out processes, the absence of which, could potentiallly result in sudden, clinically significant life or limb threatening deterioration. Attestation - Physician/ GRACE Attestation Patient care was provided by Advanced Practice Provider:: No The physician spent face to face time with patient:: Yes Advanced Practice Provider documentation review:: Supervising physician onsite and consulted in the evaluation and care of this patient. The physician did have a face to face encounter with the patient. This chart was documented by the indicated scribe, (Amairani Soto Scribe) and accurately reflects the services I performed and decisions made by me, Manny Wynne MD, as attested by the provider's signature.
[2017-07-15 17:37] LABS: ALLEN TEST YES; BLOOD TYPE ARTERIAL; DRAW SITE L RADIAL; METHB 0.6 % (0.0-1.5); O2(CT) 13.8 mL/dL (15.0-23.0); PCO2(98.6) 35 mmHg (35-45); PO2(98.6) 72 mmHg (60-100); SAMPLE BLOOD; SAO2 96.2 % (95.0-100.0); THB 10.3 g/dL (11.5-17.4); pH(98.6) 7.36 (7.35-7.45)
[2017-07-15 17:38] LABS: MODALITY ROOM AIR
[2017-07-15] MEDS ORDERED: NORCO-7.5 PO ONE (18:02)
[2017-07-15] MEDS ORDERED: D5 NS 1,000 ML IV ONE (19:07)
[2017-07-15] MEDS ORDERED: VELTASSA PO ONE (19:08)
--- NOTE | 2017-07-15 19:12 | Diag Imaging Result Doc PS360 ---
EXAM: CHEST-PORTABLE INDICATION: Elevated WBC TECHNIQUE: One view COMPARISON: 06/17/2015 FINDINGS: The lungs are grossly clear. There is no discrete pleural fluid collection or pneumothorax. The cardiac silhouette is somewhat prominent but stable, perhaps due to magnification from AP technique. IMPRESSION: Stable chest with no definite acute pathology by plain radiograph. Electronically signed by Chad Contreras 07/15/2017 7:10 PM
[2017-07-15 19:44] LABS: UR CREAT RANDOM 62.8 mg/dL (11-20)
[2017-07-15] MEDS ORDERED: ZOFRAN IV PRN (21:08)
[2017-07-15] MEDS ORDERED: FLEXERIL PO PRN (21:08)
[2017-07-15] MEDS: ZOLOFT PO SCH (22:42)
[2017-07-15] MEDS: APRESOLINE PO SCH (22:42)
[2017-07-15] MEDS: ASPIRIN PO SCH (22:42)
[2017-07-15] MEDS: LOVAZA PO SCH (22:42)
[2017-07-15] MEDS: ZOSYN 3.375 GM in NS 50 ML IV SCH (22:42)
[2017-07-15] MEDS: NORVASC PO SCH (22:42)
--- NOTE | 2017-07-16 02:07 | HISTORY AND PHYSICAL ---
PRIMARY CARE PROVIDER: Dr. Caleb Hebert. CHIEF COMPLAINT: She is complaining of her arthritis flaring up but also that she has had more weakness for the last 2 weeks. HISTORY OF PRESENT ILLNESS: Ms Heidi Romero is an 87-year-old female with a medical history of congestive heart failure, diabetes mellitus type 2, hypertension, depression, coronary artery disease and CKD, who now presents with complaints of 2 weeks of worsening weakness. Also has associated nausea, diarrhea that is chronic in nature, chills. She has been feeling dizzy and lightheaded, more short of breath with activity, more swelling in her hands and her legs, and she complains of weight gain that she takes Lasix for every morning. Most recently , about 2 weeks ago, she was treated for a urinary tract infection at [facility] with Levaquin which she completed. A urinalysis on admit is negative for any type of urinary tract infection. She does have elevated white count of 19. The chest x-ray is negative for any acute findings. Blood cultures have been obtained and she has a little low grade fever of 99.3. She received a dose of Rocephin in the ER. We will do some Zosyn while she is here. She also has an elevated creatinine up to 3.4 which is the another point from her last admission which was May. We will admit to the medical floor, treat her with IV fluid hydration, do antibiotics and follow up with blood cultures. We will order physical therapy for her weakness. PAST MEDICAL HISTORY: Congestive heart failure, diabetes mellitus type 2, hypertension, hyperlipidemia, depression, coronary artery disease, myocardial infarction 24 years ago, CKD stage 3, chronic diarrhea, rheumatoid arthritis, GERD, gastritis and most recently had a UTI. PAST SURGICAL HISTORY: Several heart catheterizations. FAMILY HISTORY: Father had liver and lung cancer and also on his side of the family there is leukemia. Mother had coronary artery disease and diabetes on her side of the family. Her brother had coronary artery disease and throat cancer. Sister had blood cancer. Her son had a heart attack. Her daughter had pancreatic and lung cancer. SOCIAL HISTORY: Her daughter lives with her at home. She uses a walker to get around. She denies tobacco, alcohol or illicit drug use. ALLERGIES: Vytorin, iodine, Corgard, Talwin, Inderal, Crestor, tetanus, Procardia, Tenormin, clonidine and Avandia. HOME MEDICATIONS: Amlodipine 10 mg p.o. nightly, aspirin 81 mg p.o. nightly, Flexeril 10 mg p.o. t.i.d. p.r.n., Nexium 40 mg p.o. daily, Lasix 40 mg p.o. daily, Glucotrol 10 mg p.o. twice daily, Apresoline 100 mg p.o. twice daily, insulin regular 20 units, Toujeo SoloSTAR 20 units subcutaneous every night, Zestril 40 mg p.o. daily, Bystolic 10 mg p.o. daily, Lovaza 1 g p.o. twice daily, Zoloft 50 mg p.o. nightly, Ultram 50 mg p.o. twice daily p.r.n. REVIEW OF SYSTEMS: Fourteen point review of systems was complete and all were negative except for those mentioned in above HPI. PHYSICAL EXAMINATION: VITAL SIGNS: Temperature is 99.3 degrees, heart rate 52, respiratory rate 18, blood pressure 139/50, O2 saturation 93% on room air. She is 5 feet 3 inches tall, 190 pounds. BMI 33.7. GENERAL: Ms. Heidi Romero is an 87-year-old female. She is in no acute distress. She is able answer questions appropriately. HEENT: Atraumatic, normocephalic. Pupils equal, round, reactive to light. Extraocular movements intact. Mucous membranes are dry. NECK: No JVD or carotid bruits noted. CARDIOVASCULAR: S1, S2. Regular rate and rhythm. No rubs, gallops, murmurs. PULMONARY: Clear to auscultation. Bilateral breath sounds. No accessory muscle use or work of breathing noted. GASTROINTESTINAL: Soft, nontender, nondistended. Positive bowel sounds x4. EXTREMITIES: Trace edema noted. Redness in the bilateral hand knuckles. +2 dorsalis and radial pulses. NEUROLOGIC: Oriented x4. Moves all extremities equally. SKIN: Warm, dry, intact. LABORATORY DATA: White blood cells 19,000, hemoglobin 11, hematocrit 35, platelet count 377,000. INR 1.02. Ph 7.36, pCO2 35, PO2 72, bicarb 21, base excess -5, saturation 94.5% , lactate 0.7 on room air. Sodium 136, potassium 5.5, BUN 82, creatinine 3.4, glucose on admit was 43, after treatment was 162, magnesium 2.0, bilirubin 0.27, AST 20, ALT 7. CK 28, troponin less than 0.01, proBNP is 1131. Urinalysis, small leukocytes, 10-20 white blood cells and otherwise negative. IMAGING: Chest is stable. No definite acute pathology. ASSESSMENT AND PLAN: 1. Acute kidney injury on chronic kidney disease secondary to dehydration likely causing weakness. We will do IV fluid hydration and stop any nephrotoxic medications. We will follow up with urine studies. 2. Possible symptomatic hypoglycemia with a history of diabetes mellitus type 2. We will hold any insulin for now and check pattern blood glucoses, do a diabetic diet. We will also do normal saline D5W at 75 an hour. 3. History of congestive heart failure. Last echocardiogram was performed in 2013. The ejection fraction was normal at that time. 4. Rheumatoid arthritis, could be a flare up. She in pain in the fingers and her white count is up. 5. Leukocytosis. Chest x-ray is clear. Urinalysis is clear. We will follow up with blood cultures. She does have a slightly elevated temperature at 99.3 degrees. 6. Hyperkalemia. We will give a 1 time dose of Veltassa and recheck in the morning. 7. Generalized weakness. Could be several different factors. We will continue to evaluate causes. 8. Hypertension. Continue home medications except for nephrotoxic drugs. 9. Coronary artery disease with a history of myocardial infarction, stable. 10. Chronic diarrhea. 11. Gastroesophageal reflux disease. 12. Deep venous thrombosis prophylaxis, SCDs. I have personally performed a face to face diagnostic evaluation on this patient , also I reviewed this patient lab work and, images and vital signs, I will add to her diagnosis rheumatoid arthritis flare, I will monitor and probably will start steroids on this patient, I will monitor also her kidney function, I need to rule out infection, Dr Jamison Bazan Dictated by MARYSE Martines for Jamison Olivares MD cc: MARYSE Martines MD Kenneth E. Mashburn, MD [facility] HEALTHChey
[2017-07-16] MEDS: ULTRAM PO PRN ×3 (02:32→21:58)
[2017-07-16] MEDS: ZOSYN 3.375 GM in NS 50 ML IV SCH ×5 (04:51→21:59)
[2017-07-16 06:25] LABS: MANUAL DIFF NEEDED? NO
[2017-07-16 06:30] LABS: BASO% 0.1 % (0.0-0.8); EOS# 0.05 X1000 (0.0-0.7); EOS% 0.4 % (0.0-10.0); HEMATOCRIT 31.1 % (37.0-47.0); HEMOGLOBIN 9.9 g/dL (12.0-16.0); IMM GRAN# 0.06 X1000 (0.0-0.04); IMM GRAN% 0.5 % (0.0-0.5); LYMPH# 1.53 X1000 (1.2-3.4); LYMPH% 12.4 % (20.5-51.1); MCH 26.5 PG (27-31); MCHC 31.8 g/dL (33-37); MCV 83.4 FL (81-99); MONO% 9.7 % (1.7-9.3); MPV 10.1 FL (7.4-10.4); NEUT% 76.9 % (42.2-75.2); PLT 327 X1000 (130-400); RBC 3.73 XMIL (4.2-5.4)
[2017-07-16 06:35] LABS: INR 1.07; PROTIME 11.3 Seconds (9.2-11.7); PTT 33.1 Seconds (22.0-36.0)
[2017-07-16 06:42] LABS: ALBUMIN 3.2 g/dL (3.5-5.0); CALCIUM 9.2 mg/dL (8.8-10.2); MAGNESIUM 1.9 mg/dL (1.5-2.7); POTASSIUM 4.7 mmol/L (3.5-5.1); TOTAL BILIRUBIN 0.26 mg/dL (0.20-1.00); TOTAL PROTEIN 6.6 g/dL (6.3-8.3); URIC ACID 12.1 mg/dL (2.4-5.7)
[2017-07-16] MEDS: LOVAZA PO SCH ×2 (08:30→21:32)
[2017-07-16] MEDS: APRESOLINE PO SCH ×2 (08:30→21:32)
[2017-07-16] MEDS: BYSTOLIC PO SCH (08:30)
[2017-07-16] MEDS: NEXIUM PO SCH (08:30)
[2017-07-16] MEDS ORDERED: SOLU-MEDROL IV ONE (13:08)
--- NOTE | 2017-07-16 15:24 | PROGRESS NOTE ---
DATE: 07/16/2017 SUBJECTIVE: This patient states that she has been having hand and feet pain, to the point that she cannot walk or use her hands. She has some joint swelling and deformity, secondary to rheumatoid arthritis. This looks like a flare. I will give her a 1-time dose of IV steroids, and I will monitor this tomorrow. Also, this patient presents with a urinary tract infection. She was already started on antibiotics, Zosyn. We have a positive urine culture that showed gram- negative rods, so I will keep the antibiotics. Even though she has been having infection, she is not complaining about it. Apparently she has been confused, not today, but probably this confusion is related to infectious encephalopathy, so I will continue treating this patient. OBJECTIVE: Vital Signs: Temperature 97.8 degrees, pulse 53, respiratory rate 16, blood pressure 136/41, O2 saturation 96% on room air. HEENT: Head normocephalic. No trauma. PERRLA. Neck: Supple. No JVD. No masses. Central trachea. Chest: Clear to auscultation. No wheezing. No rales. Abdomen: Soft, nontender, nondistended. No hepatosplenomegaly. Extremities: Hands with multiple joint swelling, mostly the metacarpophalangeal joint and PIP. Diffuse pain at the level of the feet. Neurological: The patient is alert and oriented x3. At this moment, no focal deficits. LABORATORY: WBC 12.3, hemoglobin 9.9, hematocrit 31.1, platelet 327,000. Sodium 137, potassium 4.7, chloride 103, bicarbonate 18, BUN 79, creatinine 3.1, glucose 127, calcium 9.2, albumin 3.2. ASSESSMENT AND PLAN: 1. Acute kidney injury on chronic kidney disease, likely secondary to dehydration. Continue with IV fluids. Avoid nephrotoxic medications. 2. Leukocytosis with positive urine culture for gram-negative rods, urinary tract infection. Continue with antibiotics. 3. Symptomatic hypoglycemia, with a history of diabetes mellitus type 2. We will continue with pattern of blood sugar and diabetic diet. Continue with IV fluids. 4. History of congestive heart failure, stable. She has no complaint of shortness of breath at this moment. 5. Rheumatoid arthritis. This patient has a flare. I will give her 1 dose of steroids IV, and probably we will need to keep this patient on prednisone in the future. We will follow this closely. 6. Hyperkalemia, resolved. 7. Generalized weakness. This is multifactorial, could be related with dehydration, confusion and pain. 8. Hypertension. Continue with home medication, except nephrotoxic drugs. 9. History of coronary artery disease coronary artery disease, stable. 10. Chronic diarrhea, aware. 11. Gastroesophageal reflux disease, aware. 12. Deep vein thrombosis prophylaxis with sequential compression devices. Overall, this patient is more awake and alert compared with yesterday. She has been complaining of hands and feet pain, and this is likely related to a rheumatoid arthritis flare. I will give a 1-time dose of steroids today IV, but probably we will need to continue steroids p.o., starting tomorrow. We have a positive urine culture that showed gram-negative rods. She has been on antibiotics. Even though she is not complaining of any symptoms, she has been confused and this could be related to infectious encephalopathy. She is completely alert and oriented x3 at this time, though. cc: Jamison Olivares MD MTDD
[2017-07-16] MEDS: ZOLOFT PO SCH (21:32)
[2017-07-16] MEDS: ASPIRIN PO SCH (21:32)
[2017-07-16] MEDS: NORVASC PO SCH (21:32)
[2017-07-17] MEDS: HUMULIN R SUBQ SCH ×7 (02:42→23:27)
[2017-07-17 03:50] LABS: BASO% 0.1 % (0.0-0.8); HEMATOCRIT 30.5 % (37.0-47.0); HEMOGLOBIN 9.8 g/dL (12.0-16.0); IMM GRAN# 0.08 X1000 (0.0-0.04); IMM GRAN% 0.8 % (0.0-0.5); LYMPH% 6.3 % (20.5-51.1); MANUAL DIFF NEEDED? YES; MCH 26.8 PG (27-31); MCHC 32.1 g/dL (33-37); MCV 83.3 FL (81-99); MONO# 0.12 X1000 (0.11-0.59); MONO% 1.3 % (1.7-9.3); MPV 10.4 FL (7.4-10.4); NEUT% 91.5 % (42.2-75.2); PLT 313 X1000 (130-400); RBC 3.66 XMIL (4.2-5.4)
[2017-07-17 03:50] LABS: ALLEN TEST YES; BE -7.9 mmoll (-3.0-3.0); BLOOD TYPE ARTERIAL; DRAW SITE R RADIAL; O2(CT) 13.8 mL/dL (15.0-23.0); PCO2(98.6) 35 mmHg (35-45); PO2(98.6) 73 mmHg (60-100); SAMPLE BLOOD; SAO2 95.8 % (95.0-100.0); THB 10.4 g/dL (11.5-17.4); pH(98.6) 7.31 (7.35-7.45)
[2017-07-17 03:51] LABS: MODALITY ROOM AIR
[2017-07-17] MEDS: ZOSYN 3.375 GM in NS 50 ML IV SCH ×3 (04:12→10:34)
[2017-07-17 04:32] LABS: BANDS 6 % (0-1); LYMPHS 6 % (21-51); MONO 2 % (1-9)
[2017-07-17 04:39] LABS: CALCIUM 9.7 mg/dL (8.8-10.2); POTASSIUM 5.7 mmol/L (3.5-5.1)
[2017-07-17] MEDS ORDERED: HUMULIN R IV ONE ×2 (05:53→09:55)
[2017-07-17] MEDS ORDERED: SODIUM BICARBONATE 8.4% IV PUSH ONE (08:34)
[2017-07-17] MEDS ORDERED: ALBUTEROL 0.5% INH CONC FOR HYPERKALEMIA INH ONE (08:35)
--- NOTE | 2017-07-17 09:10 | EKG Report ---
Test Performed on : 07/15/2017 1:40:16 PM Test Reason : re-ordered/cp Blood Pressure : / mmHG Vent. Rate : 057 BPM Atrial Rate : 057 BPM P-R Int : 208 ms QRS Dur : 090 ms QT Int : 388 ms P-R-T Axes : 007 -13 015 degrees QTc Int : 377 ms Sinus bradycardia. Minimal voltage criteria for LVH, may be normal variant Inferior infarct , age undetermined Abnormal ECG When compared with ECG of 29-MAY-2016 21:28, Inferior infarct is now present Unconfirmed Result
[2017-07-17] MEDS: BYSTOLIC PO SCH (09:22)
[2017-07-17] MEDS: APRESOLINE PO SCH ×2 (09:22→23:28)
[2017-07-17] MEDS: NEXIUM PO SCH (09:22)
[2017-07-17] MEDS: LOVAZA PO SCH ×2 (09:23→23:28)
[2017-07-17] MEDS ORDERED: LANTUS SUBQ SCH (10:15)
[2017-07-17] MEDS: SODIUM BICARBONATE PO SCH ×2 (10:15→23:28)
[2017-07-17] MEDS: NS 1,000 ML IV SCH ×2 (10:15→23:26)
[2017-07-17 14:57] LABS: URINE MICRO REVIEW NEEDED? NO; URINE SOURCE CLEAN CATCH
[2017-07-17 15:02] LABS: BILIRUBIN URINE NEGATIVE (NEGATIVE); BLOOD URINE NEGATIVE (NEGATIVE); COLOR YELLOW; GLUCOSE URINE 150 mg/dL (NEGATIVE); LEUKOCYTES URINE NEGATIVE (NEGATIVE); NITRITE URINE NEGATIVE (NEGATIVE); PROTEIN URINE TRACE mg/dL (NEGATIVE); SP GRAVITY URINE 1.016; TURBIDITY URINE CLEAR (CLEAR); UR EPITHELIAL CELLS <10 /HPF (<10); URINE BACTERIA NEGATIVE /HPF; URINE RBC <10 /HPF (<10); URINE WBC <10 /HPF (<10); UROBILINOGEN URINE NORMAL (NORMAL)
[2017-07-17] MEDS ORDERED: HUMULIN R SUBQ SCH ×2 (15:15→22:23)
[2017-07-17 15:50] LABS: UR CREAT RANDOM 68.2 mg/dL (11-20); UR PROT RANDOM 15.4 mg/dL
[2017-07-17 16:39] LABS: ALBUMIN 3.4 g/dL (3.5-5.0); CALCIUM 9.8 mg/dL (8.8-10.2); POTASSIUM 4.5 mmol/L (3.5-5.1)
--- NOTE | 2017-07-17 16:40 | Diag Imaging Result Doc PS360 ---
EXAM: US RENAL 2 (RETROPER) COMPLETE HISTORY: beata on ckd TECHNIQUE: COMPARISON: 03/13/2015 FINDINGS: The right kidney measures 8.6 x 3.5 x 4.3 cm. Mild increased renal echotexture. There is cortical thinning. No stone or hydronephrosis. No renal mass. The left kidney measures 9.7 x 3.8 x 4.0 cm. There is mild cortical thinning with increased renal echotexture. No renal stone or hydronephrosis. No renal mass. The urinary bladder is not distended. IMPRESSION: Increased renal echotexture with cortical thinning consistent with medical renal disease. Electronically signed by Junior Guerin 07/17/2017 4:37 PM
--- NOTE | 2017-07-17 20:28 | PROGRESS NOTE ---
DATE: 07/17/2017 SUBJECTIVE: The patient is resting comfortably in bed. She has no complaints today. OBJECTIVE: Vital Signs: Temperature 97.6 degrees, blood pressure 129/78, heart rate 69, respirations 18, O2 saturation is 96% on room air. General: This is a chronically ill-appearing, elderly female, lying in bed, in no acute distress. Head: Normocephalic, atraumatic. Heart: S1, S2. Normal. Regular rate and rhythm. Lungs: Clear to auscultation bilaterally. No crackles. No rales. Abdomen: Positive bowel sounds. Soft, obese, nontender, nondistended. Extremities: There is +1 edema. No cyanosis. No calf tenderness. Neurologic: The patient is alert and oriented x3. No focal neurologic deficits noted. LAB: Sodium 135, potassium 4.5, chloride 99, CO2 15, BUN 83, creatinine 2.8, glucose 399, phosphorus 4.6. CRP 133.78. Albumin 3.4. White blood cell count 9.4, hemoglobin 9.8, hematocrit 30, platelets 313,000. Sedimentation rate 79. Renal ultrasound shows medical renal disease. No evidence of hydronephrosis. ASSESSMENT AND PLAN: 1. Metabolic encephalopathy. Resolved. 2. Urinary tract infection. The urine culture is growing gram-negative rods. We will continue on renally-dosed Zosyn. 3. Acute kidney injury on chronic kidney disease. The creatinine is slowly improving. Will continue with IV fluid hydration. Will monitor the patient's urine output closely. 4. Metabolic acidosis. The patient has a gap of 21. I suspect that this is secondary to the patient's elevated blood sugars. Will increase the patient's Lantus dosage to 20 units subcutaneous twice a day. Will also check an acetone level and ABG in the morning. If the patient's acidosis continues to worsen and the gap increases, will need to place the patient on an insulin drip. 5. Hypertension. Continue on the current antihypertensive regimen. 6. Obesity. Aware. 7. Osteoarthritis. Continue on Tramadol. 8. Situational depression. Continue on Zoloft. 9. Anemia. Will check iron studies. 10. Deep vein thrombosis prophylaxis. Will start the patient on heparin. 11. Continue with physical therapy. cc: Desire Gutierrez MD
[2017-07-17] MEDS: LANTUS SUBQ SCH (23:27)
[2017-07-17] MEDS: NORVASC PO SCH (23:28)
[2017-07-17] MEDS: DULCOLAX PR SCH (23:28)
[2017-07-17] MEDS: ZOLOFT PO SCH (23:29)
[2017-07-17] MEDS: ASPIRIN PO SCH (23:29)
[2017-07-17] MEDS: COLACE PO SCH (23:29)
[2017-07-17] MEDS: ZOSYN 2.25 GM in NS 50 ML IV SCH (23:43)
[2017-07-17] MEDS: HEPARIN SUBQ SCH (23:43)
[2017-07-18] MEDS: HUMULIN R SUBQ SCH ×6 (02:57→23:52)
[2017-07-18 04:35] LABS: ALLEN TEST YES; BE -2.7 mmoll (-3.0-3.0); BLOOD TYPE ARTERIAL; DRAW SITE R RADIAL; METHB 0.6 % (0.0-1.5); O2(CT) 15.3 mL/dL (15.0-23.0); PCO2(98.6) 40 mmHg (35-45); PO2(98.6) 71 mmHg (60-100); SAMPLE BLOOD; SAO2 95.2 % (95.0-100.0); THB 11.5 g/dL (11.5-17.4); pH(98.6) 7.36 (7.35-7.45)
[2017-07-18 04:36] LABS: MODALITY ROOM AIR
[2017-07-18 06:09] LABS: RETIC% 1.5 % (0.8-2.1); RETIC-HE 23.4 PG (28.2-36.6)
[2017-07-18 06:16] LABS: BASO% 0.1 % (0.0-0.8); HEMATOCRIT 30.6 % (37.0-47.0); HEMOGLOBIN 9.8 g/dL (12.0-16.0); IMM GRAN# 0.13 X1000 (0.0-0.04); IMM GRAN% 0.9 % (0.0-0.5); LYMPH# 0.85 X1000 (1.2-3.4); LYMPH% 5.8 % (20.5-51.1); MANUAL DIFF NEEDED? YES; MCH 26.3 PG (27-31); MONO# 0.69 X1000 (0.11-0.59); MONO% 4.7 % (1.7-9.3); MPV 9.9 FL (7.4-10.4); NEUT% 88.5 % (42.2-75.2); PLT 394 X1000 (130-400); RBC 3.73 XMIL (4.2-5.4)
[2017-07-18 06:45] LABS: ACETONE SERUM NEGATIVE (NEGATIVE)
[2017-07-18 06:55] LABS: IRON SATURATION 15 %; TIBC 227 ug/dL; TOTAL IRON 35 ug/dL (49-151); UNBOUND IRON 192 ug/dL (112-346)
[2017-07-18] MEDS: NS 1,000 ML IV SCH (06:59)
[2017-07-18 07:02] LABS: ALBUMIN 3.3 g/dL (3.5-5.0); CALCIUM 9.4 mg/dL (8.8-10.2); POTASSIUM 4.7 mmol/L (3.5-5.1)
[2017-07-18 07:13] LABS: FERRITIN 129 ng/mL (13-150)
--- NOTE | 2017-07-18 07:20 | Diag Imaging Result Doc PS360 ---
EXAM: CHEST-PORTABLE HISTORY: dyspnea TECHNIQUE: Erect AP portable at 0605 COMMENT: There is a large hiatal hernia. The inspiration is less optimal than on 07/15/2017. Otherwise, there has been no significant change. IMPRESSION: Hiatal hernia. Electronically signed by Markel Rao 07/18/2017 7:17 AM
[2017-07-18 07:23] LABS: BANDS 2 % (0-1); LYMPHS 14 % (21-51); MONO 4 % (1-9)
[2017-07-18] MEDS: 1/2 NS 1,000 ML IV SCH ×2 (08:04→23:50)
[2017-07-18] MEDS: ZOSYN 2.25 GM in NS 50 ML IV SCH ×2 (08:06→16:49)
[2017-07-18] MEDS: LANTUS SUBQ SCH ×2 (08:08→23:50)
[2017-07-18] MEDS: HEPARIN SUBQ SCH ×2 (08:10→23:52)
[2017-07-18] MEDS: COLACE PO SCH ×2 (08:12→23:52)
[2017-07-18] MEDS: APRESOLINE PO SCH ×2 (08:12→23:51)
[2017-07-18] MEDS: SODIUM BICARBONATE PO SCH ×2 (08:12→23:51)
[2017-07-18] MEDS: LOVAZA PO SCH ×2 (08:12→23:52)
[2017-07-18] MEDS: NEXIUM PO SCH (08:12)
[2017-07-18] MEDS: BYSTOLIC PO SCH (08:12)
[2017-07-18] MEDS: ICAR-C PO SCH (08:15)
--- NOTE | 2017-07-18 14:16 | PROGRESS NOTE ---
DATE: 07/18/2017 SUBJECTIVE: The patient is resting comfortably in bed. She has no complaints. The patient does report that she has not had a bowel movement yet. OBJECTIVE: Vital Signs: Temperature 98.2 degrees, blood pressure 143/61, heart rate 65, respirations 16, O2 saturations 96% on room air. General: This is an elderly female, lying in bed in no acute distress. Head: Normocephalic, atraumatic. Heart: S1, S2 normal. Bradycardic. Lungs: Clear to auscultation bilaterally. No crackles. No rales. Abdomen: Positive bowel sounds soft, obese, nontender, nondistended. Extremities: Trace pedal edema. No cyanosis. No calf tenderness. Neuro: The patient is alert and oriented x3. LABORATORY DATA: White blood cell count 14, hemoglobin 9.8, hematocrit 30, platelets 394,000. Sodium 141, potassium 4.7, chloride 106, CO2 of 22. BUN 76, creatinine 2.6, glucose 171. Phosphorus 4.3. Iron 35. Albumin 3.3. Folate 5.3. ASSESSMENT AND PLAN: 1. Metabolic encephalopathy, resolved. 2. Urinary tract infection secondary to Escherichia coli. Continue on antibiotic therapy. 3. Acute kidney injury on chronic kidney disease, improved. 4. Continue on IV fluids. 5. Metabolic acidosis, improved. 6. Leukocytosis. We will monitor the trend closely. Continue on IV antibiotic therapy. 7. Anemia, stable. 8. Morbid obesity, aware. 9. Osteoarthritis. Continue on tramadol. 10. Situational depression. Continue on Zoloft. 11. Deep vein thrombosis prophylaxis. Continue on heparin. 12. Continue with physical therapy. DISPOSITION: The patient will likely be able to be discharged home tomorrow. cc: Desire Gutierrez MD
[2017-07-18] MEDS: FOLIC ACID PO SCH (14:43)
[2017-07-18] MEDS: MIRALAX PO SCH ×2 (14:43→23:51)
[2017-07-18] MEDS ORDERED: INSULIN PEN NEEDLES ONE (22:50)
[2017-07-18] MEDS: DULCOLAX PR SCH (23:51)
[2017-07-18] MEDS: ZOLOFT PO SCH (23:51)
[2017-07-18] MEDS: ASPIRIN PO SCH (23:51)
[2017-07-18] MEDS: NORVASC PO SCH (23:52)
[2017-07-18] MEDS: ULTRAM PO PRN (23:54)
[2017-07-19] MEDS: ZOSYN 2.25 GM in NS 50 ML IV SCH ×2 (03:16→09:50)
[2017-07-19] MEDS: HUMULIN R SUBQ SCH ×3 (03:16→09:53)
[2017-07-19 06:27] LABS: MANUAL DIFF NEEDED? NO
[2017-07-19 06:48] LABS: BASO% 0.2 % (0.0-0.8); HEMATOCRIT 30.3 % (37.0-47.0); HEMOGLOBIN 9.7 g/dL (12.0-16.0); IMM GRAN% 3.1 % (0.0-0.5); LYMPH# 1.38 X1000 (1.2-3.4); LYMPH% 10.7 % (20.5-51.1); MCH 26.5 PG (27-31); MCV 82.8 FL (81-99); MONO% 6.2 % (1.7-9.3); MPV 9.6 FL (7.4-10.4); NEUT% 79.8 % (42.2-75.2); PLT 404 X1000 (130-400); RBC 3.66 XMIL (4.2-5.4)
[2017-07-19 07:03] LABS: ALBUMIN 2.9 g/dL (3.5-5.0); CALCIUM 8.6 mg/dL (8.8-10.2); POTASSIUM 4.3 mmol/L (3.5-5.1)
[2017-07-19 07:27] VITALS: BP 166/52
[2017-07-19] MEDS: MIRALAX PO SCH (08:47)
[2017-07-19] MEDS: ICAR-C PO SCH (08:48)
[2017-07-19] MEDS: APRESOLINE PO SCH (08:48)
[2017-07-19] MEDS: FOLIC ACID PO SCH (08:48)
[2017-07-19] MEDS: SODIUM BICARBONATE PO SCH (08:48)
[2017-07-19] MEDS: COLACE PO SCH (08:48)
[2017-07-19] MEDS: BYSTOLIC PO SCH (08:48)
[2017-07-19] MEDS: NEXIUM PO SCH (08:48)
[2017-07-19] MEDS: LOVAZA PO SCH (08:48)
[2017-07-19] MEDS: HEPARIN SUBQ SCH (08:50)
[2017-07-19] MEDS: LANTUS SUBQ SCH (08:50)
--- NOTE | 2017-07-27 09:25 | DISCHARGE SUMMARY ---
ADMISSION DATE: 07/15/2017 DISCHARGE DATE: 07/19/2017 FINAL DISCHARGE DIAGNOSES: 1. Metabolic encephalopathy. 2. Urinary tract infection secondary to Escherichia coli. 3. Acute kidney rykyit-je-rpxtucz kidney disease. 4. Metabolic acidosis. 5. Leukocytosis. 6. Anemia. 7. Morbid obesity. 8. Osteoarthritis. 9. Situational depression. HOSPITAL COURSE: Ms. Romero is an 87-year-old female with a history of multiple medical problems, who initially presented to the ER with confusion and weakness. A urinalysis was done in the ER that revealed a urinary tract infection. Also, the patient was noted to be in acute kidney injury. The patient was admitted to the hospitalist service and started on IV fluids and antibiotic therapy. With the initiation of fluids and antibiotics, the patient's mental status improved. The urine culture ultimately grew out Escherichia coli. The blood cultures were noted to be negative. The patient was seen by the physical therapist. The patient continued to improve clinically and was cleared for discharge on 07/19/2017. DISCHARGE MEDICATIONS: 1. Lantus 20 units subcutaneous twice a day. 2. Icar-C 1 tablet oral daily. 3. Folic acid 1 mg p.o. daily. 4. Keflex 500 mg p.o. twice a day x5 days. 5. Aspirin 81 mg p.o. at bedtime. 6. Lovaza 1 g oral twice daily. 7. Zoloft 50 mg p.o. at bedtime. 8. Nexium 40 mg p.o. daily. 9. Norvasc 10 mg p.o. at bedtime. 10. Bystolic 10 mg p.o. daily. 11. Hydralazine 100 mg p.o. twice a day. 12. Flexeril 10 mg p.o. 3 times a day p.r.n. for muscle spasm. 13. Tramadol 50 mg p.o. twice a day p.r.n. for pain. DISCHARGE DIET: 1800 ADA diet. Low-sodium diet. ACTIVITY: As tolerated. FOLLOWUP INSTRUCTIONS: The patient has been advised to follow up with Dr. Hebert in 2 weeks. The patient will also need to follow up with Dr. Knox as scheduled by his clinic. cc: MD Caleb Witt MD
== END 2017-07-19 12:00 | disposition home health service (06) ==
LOC: SUPCPDRO → ED 13:37 → SUATTDRO 20:42 → 4N 20:42
PROVIDERS: ATTEND Internal Medicine

== ENCOUNTER 2019-07-15 14:57 | Inpatient (IN) ==
--- NOTE | 2019-07-15 15:05 | PROVIDER DOCUMENTATION ---
HPI-Chest Pain - General Chief Complaint: Chest Pain Stated Complaint: CP Time Seen by Provider: 07/15/19 15:03 Source: patient Allergies/Adverse Reactions: Patient Allergies Allergy/AdvReac Type Severity Reaction Status Date / Time ezetimibe Allergy Severe ANAPHYLAXIS Verified 10/23/18 09:42 [From Vytorin 10-10] nadolol [From Corgard] Allergy Severe ANAPHYLAXIS Verified 10/23/18 09:42 pentazocine lactate * Allergy Severe ANAPHYLAXIS Verified 10/23/18 09:42 [From Talwin] propranolol HCl * Allergy Severe ANAPHYLAXIS Verified 10/23/18 09:42 [From Inderal LA] rosuvastatin calcium * Allergy Severe ANAPHYLAXIS Verified 10/23/18 09:42 [From Crestor] simvastatin Allergy Severe ANAPHYLAXIS Verified 10/23/18 09:42 [From Vytorin 10-10] Tetanus Vaccines and Toxoid Allergy Severe ANAPHYLAXIS Verified 10/23/18 09:42 [Tetanus] nifedipine [From Procardia] Allergy Unknown Unknown Verified 10/23/18 09:42 hydromorphone [From Dilaudid] Allergy RASH Verified 10/23/18 09:42 Iodinated Contrast- Oral and Allergy SHORTNESS Verified 10/23/18 09:42 IV Dye OF BREATH [IV Dye] minoxidil Allergy Unknown Verified 10/23/18 09:42 atenolol [From Tenormin] AdvReac Intermediate Unknown Verified 10/23/18 09:42 clonidine AdvReac SHORTNESS Verified 10/23/18 09:42 OF BREATH rosiglitazone maleate * AdvReac Unknown Verified 10/23/18 09:42 [From Avandia] Home Medications: Home Medication List Medication Instructions Recorded Confirmed Last Taken Type Aspirin 81 mg PO HS 10/12/12 10/23/18 10/11/18 History Sargeant-3 Acid Ethyl Esters [Lovaza] 1 gm PO BID 10/12/12 10/23/18 10/22/18 21:00 History Sertraline [Zoloft] 50 mg PO QHS 08/10/14 10/23/18 10/22/18 21:00 History Esomeprazole [Nexium] 40 mg PO DAILY 10/05/14 10/23/18 10/22/18 09:00 History Amlodipine Besylate 10 mg PO QHS 06/17/15 10/23/18 10/22/18 21:00 History Nebivolol HCl [Bystolic] 10 mg PO DAILY 06/17/15 10/23/18 10/22/18 09:00 History Hydralazine [Apresoline] 100 mg PO BID 12/26/15 10/23/18 10/23/18 07:30 History Cyclobenzaprine [Flexeril] 10 mg PO TID PRN 06/17/17 10/23/18 1 Day Ago History ~07/14/17 Tramadol [Ultram] 50 mg PO BID PRN 06/17/17 10/23/18 10/22/18 21:00 History Insulin Glargine [Lantus] 20 unit SUBQ BID #5 insuln.pen 07/19/17 10/23/18 10/22/18 21:00 Rx Clonazepam 0.5 mg PO PRN PRN 10/13/17 10/23/18 Unknown History Furosemide [Lasix] 40 mg PO DAILY 10/13/17 10/23/18 10/22/18 09:00 History Lisinopril [Zestril] 40 mg PO DAILY 10/13/17 10/23/18 10/22/18 09:00 History Hydrocodone/APAP 5 mg/325 mg 1 tab PO Q6H PRN PRN #12 tab 10/14/17 10/23/18 10/21/18 Rx [[place]-5] Aspirin 325 mg PO BID tablet 10/25/18 Unknown Rx Folic Acid 1 mg PO DAILY #30 tab 10/25/18 Unknown Rx Levofloxacin [Levaquin] 250 mg PO DAILY #7 tab 10/25/18 Unknown Rx - History of Present Illness-CP Nature of Presenting Problem: 89 yr old F with PMHx significant for HTN, CHF, presents with chest pain, dizziness, SOB that started this afternoon at 1pm. Pt states her heart started to "flutter", and she became dizzy and short of breath, though she did not pass out. Shortly after her chest and left shoulder started to hurt. When her symptom s did not resolve, she had her daughter bring her to the ED. She reports nausea, no vomiting. Chest pain is cramping, substernal, travels into her left chest. Location: reports: substernal, shoulder Chest Pain Radiation: reports: shoulders Quality of Pain: reports: cramping, pressure, other (flutter) Severity in ED: moderate Onset/Duration: 1 hour ago Timing: still present Context/Activities at Onset: reports: none Modifying Factors: improves with: nothing Associated Symptoms: reports: diaphoresis, dizziness, nausea, shortness of breath Nitro Today/Relief: no nitro taken today Aspirin Treatment Today: 81 mg x 1 Prior Chest Pain/Cardiac Workup: reports: no prior chest pain Similar Symptoms Previously?: No Recently Seen Here or By Another Healthcare Provider: No Review of Systems - Adult - REVIEW OF SYSTEMS - ADULT Constitutional: reports: no symptoms reported Eyes: reports: no symptoms reported Ears, Nose, Mouth & Throat: reports: no symptoms reported Cardiovascular: reports: chest pain Respiratory: reports: shortness of breath Gastrointestinal: reports: nausea Genitourinary: reports: no symptoms reported Musculoskeletal: reports: no symptoms reported Integumentary: reports: no symptoms reported Neurological: reports: dizziness/vertigo (dizziness) Psychiatric: reports: no symptoms reported Endocrine: reports: no symptoms reported Hematologic/Lymphatic: reports: no symptoms reported Allergic/Immunologic: reports: no symptoms reported Past History - Adult - PAST MEDICAL HISTORY-ADULT Review of Records: reports: Nursing Assessment Review, Social history reviewed & non-contributory. Major Childhood Illnesses: reports: denies history Cardiovascular: reports: CAD, HTN, hyperlipidemia, ID Respiratory: reports: denies history Gastrointestinal: reports: cancer, GERD Obstetrical/Gynecological: reports: denies history Genitourinary: reports: kidney disease Musculoskeletal: reports: arthritis Neurological: reports: denies history Endocrine/Immune: reports: denies history Other Conditions: reports: denies history - PRIOR SURGERIES/PROCEDURES Surgical/Procedure History: reports: appendectomy, cholecystectomy, hysterectomy , BTL, orthopedic (extremity) (LT foot), joint replacement (total knee), 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) - PRIOR HOSPITALIZATIONS Prior Hospitalizations: reports: for other non-related - IMMUNIZATION STATUS Childhood Immunizations: See Nurse Assessment Flu Vaccine: See Nurse Assessment - FAMILY HISTORY Family History: reviewed, not pertinent Physical Exam-General - PHYSICAL EXAM-ADULT Initial Vital Signs Reviewed: Yes - CONSTITUTIONAL General Appearance: alert, mild distress - EYES Eyes: PERRL/EOMI - HEAD, EARS, NOSE, MOUTH & THROAT HENMT: normocephalic/atraumatic - NECK Neck: non-tender - RESPIRATORY Respiratory: lungs clear - CARDIOVASCULAR Cardiovascular: no JVD, tachycardia - GASTROINTESTINAL (ABDOMEN) Abdominal Exam: normal bowel sounds, non tender - MUSCULOSKELETAL Extremity: no pedal edema - NEUROLOGIC Neurologic: no motor/sensory deficits - HEART Score HEART Score: History: Highly Suspicious HEART Score: ECG: Non-Specific Repolarization Disturbance/LBBB/PM HEART Score: Age: > or = 65 Years HEART Score: Risk Factors for Atherosclerotic Disease: 1 or 2 Risk Factors HEART Score: Troponin: 1-3x Normal Limit Total HEART Score:: 7 Progress - PLAN OF CARE/RESULTS Progress/Plan/Lab Results: Vital Signs - 8 hr 07/15/19 14:59 07/15/19 15:12 07/15/19 15:19 Temperature 97.8 F Pulse Rate 106 H 153 H 148 H Respiratory Rate 20 22 24 Blood Pressure 147/66 129/94 131/93 O2 Sat by Pulse Oximetry 99 99 99 07/15/19 15:32 07/15/19 15:48 07/15/19 16:02 Temperature Pulse Rate 143 H 140 H 139 H Respiratory Rate 28 H 23 15 Blood Pressure 118/82 96/67 137/79 O2 Sat by Pulse Oximetry 98 07/15/19 16:10 07/15/19 16:17 07/15/19 16:32 Temperature Pulse Rate 80 87 86 Respiratory Rate 11 L 15 19 Blood Pressure 131/75 144/77 O2 Sat by Pulse Oximetry 07/15/19 16:47 Temperature Pulse Rate 85 Respiratory Rate 13 Blood Pressure 137/69 O2 Sat by Pulse Oximetry Laboratory Results - last 24 hr 07/15/19 07/15/19 07/15/19 15:48 15:48 15:48 WBC 9.47 RBC 4.52 Hgb 11.9 L Hct 37.1 MCV 82.1 MCH 26.3 L MCHC 32.1 L RDW Std Deviation 17.3 H Plt Count 270 MPV 10.6 H Immature Gran % (Auto) 0.2 Neut % (Auto) 71.0 Lymph % (Auto) 19.4 L [place] % (Auto) 7.7 Eos % (Auto) 1.3 Baso % (Auto) 0.4 Immature Gran # (Auto) 0.02 Neut # (Auto) 6.72 H Lymph # (Auto) 1.84 [place] # (Auto) 0.73 H Eos # (Auto) 0.12 Baso # (Auto) 0.04 PT 13.7 INR 1.03 PTT (Actin FS) 28.7 Sodium 139 Potassium 4.3 Chloride 106 Carbon Dioxide 20 L Anion Gap 13 BUN 26 H Creatinine 1.6 H Estimated GFR/1.73 m2 30 BUN/Creatinine Ratio 16 Glucose 244 H Calculated Osmolality 290 Calcium 9.5 Total Bilirubin < 0.15 L AST 21 ALT 12 Alkaline Phosphatase 91 Creatine Kinase 48 Troponin T Total Protein 7.2 Albumin 3.9 Globulin 3.3 Albumin/Globulin Ratio 1.2 07/15/19 15:48 WBC RBC Hgb Hct MCV MCH MCHC RDW Std Deviation Plt Count MPV Immature Gran % (Auto) Neut % (Auto) Lymph % (Auto) [place] % (Auto) Eos % (Auto) Baso % (Auto) Immature Gran # (Auto) Neut # (Auto) Lymph # (Auto) [place] # (Auto) Eos # (Auto) Baso # (Auto) PT INR PTT (Actin FS) Sodium Potassium Chloride Carbon Dioxide Anion Gap BUN Creatinine Estimated GFR/1.73 m2 BUN/Creatinine Ratio Glucose Calculated Osmolality Calcium Total Bilirubin AST ALT Alkaline Phosphatase Creatine Kinase Troponin T 0.094 H Total Protein Albumin Globulin Albumin/Globulin Ratio Orders Category Date Time Status Admit - [facility] Routine AdmDCTranf 07/15/19 17:37 Active Activity - Strict Bedrest ORDERED Care 07/15/19 17:37 Active Cardiac Monitoring DIRECTED Care 07/15/19 15:15 Active FSBS/Accucheck Result AC + HS Care 07/15/19 17:39 Active Nursing- MD Consult Request ROUTINE Care 07/15/19 17:44 Active Nursing- Obtain EKG ONCE Care 07/15/19 17:52 Active Saline Loc DIRECTED Care 07/15/19 17:37 Active Vital Signs Order Q 4-HR ASSESS Care 07/15/19 17:37 Active Z-Document. for Tele Applied ORDERED Care 07/15/19 17:37 Active Physician/Provider Consults Routine Cons 07/15/19 17:44 Ordered Diabetic Diet Diet 07/15/19 17:37 Active NPO Diet 07/16/19 00:01 Active CHEST-1 VIEW [RAD] Stat Exams 07/15/19 15:15 Completed BASIC METABOLIC PANEL [CHEM] Routine Lab 07/16/19 06:00 Ordered CBC WITH ELECTRONIC DIFF [HEME] Stat Lab 07/15/19 15:48 Completed CK PROFILE [SP CHEM] Q8H Lab 07/15/19 17:45 Ordered CK PROFILE [SP CHEM] Q8H Lab 07/16/19 01:45 Ordered CK PROFILE [SP CHEM] Q8H Lab 07/16/19 09:45 Ordered CK PROFILE [SP CHEM] Stat Lab 07/15/19 15:48 Completed COMPREHENSIVE METABOLIC PANEL [CHEM] Stat Lab 07/15/19 15:48 Completed FREE T4 Routine Lab 07/15/19 17:44 Ordered LIPID PROFILE W/CALC LDL [LIPIDS] Routine Lab 07/16/19 06:00 Ordered PROTIME WITH INR [COAG] Stat Lab 07/15/19 15:48 Completed PTT [COAG] Stat Lab 07/15/19 15:48 Completed TROPONIN T Q8H Lab 07/15/19 17:45 Ordered TROPONIN T Q8H Lab 07/16/19 01:45 Ordered TROPONIN T Q8H Lab 07/16/19 09:45 Ordered TROPONIN T Stat Lab 07/15/19 15:48 Completed TSH Routine Lab 07/15/19 17:45 Ordered Acetaminophen [Tylenol] Med 07/15/19 17:37 Active 650 mg PO Q6H PRN PRN Amlodipine [Norvasc] Med 07/15/19 21:00 Active 10 mg PO QHS Aspirin Med 07/15/19 21:00 Active 325 mg PO BID Aspirin Med 07/15/19 16:35 Discontinued 325 mg PO NOW ONE Clonazepam [Klonopin] Med 07/15/19 17:39 Active 0.5 mg PO Q12H PRN PRN Cyclobenzaprine [Flexeril] Med 07/15/19 17:39 Active 10 mg PO TID PRN PRN Folic Acid Med 07/16/19 09:00 Active 1 mg PO DAILY Furosemide [Lasix] Med 07/16/19 09:00 Active 40 mg PO DAILY Hydralazine [Apresoline] Med 07/15/19 21:00 Active 100 mg PO BID Insulin Human Regular [Humulin R] Med 07/15/19 17:39 Discontinued See Protocol SUBQ NOW ONE LISINOpril [Prinivil] Med 07/16/19 09:00 Active 40 mg PO DAILY Labetalol [Trandate] Med 07/15/19 15:09 Discontinued 100 mg PO NOW ONE Morphine Med 07/15/19 16:54 Discontinued 2 mg IV NOW ONE Morphine Med 07/15/19 17:37 Active 2 mg IV Q2H PRN PRN Nebivolol [Bystolic] Med 07/16/19 09:00 Active 10 mg PO DAILY Nitroglycerin Med 07/15/19 17:45 Active 0.5 inch TOP Q6H Sargeant-3 Fatty Acids [Fish Oil Concentrate] Med 07/15/19 21:00 Active 1,000 mg PO BID Omeprazole [Prilosec] Med 07/16/19 07:00 Active 40 mg PO ACB Ondansetron [Zofran] Med 07/15/19 17:37 Active 4 mg IV Q4H PRN PRN Ondansetron [Zofran] Med 07/15/19 16:35 Discontinued 8 mg IM NOW ONE Sertraline [Zoloft] Med 07/15/19 21:00 Active 50 mg PO QHS Oxygen Device Routine Oth 07/15/19 17:37 Active Telemetry [OM.EQ] Routine Oth 07/15/19 17:37 Active EKG [EKG] Stat Ther 07/15/19 15:15 Draft Transfer/Admit Order [TRANSFER] Routine Transfer 07/15/19 17:29 Ordered Result Diagrams: 07/15/19 15:48 07/15/19 15:48 - EKG 1 Time of EKG reading by physician:: 15:08 EKG Read and Signed by:: Mita Bustos EKG Interpretation (*Must complete 3 of following elements*): Abnormal Rate: 156 QRS: normal MI Interval: shortened ST Wave: elevated Comments: SVT, possible inferior and anterior infarct - CONSULTS/PCP/HOSPITALIST Notification #1 *Consult/PCP/Hospitalist*: Dr. Abarca Time Discussed: 16:54 Consult Disposition: Admit Departure - Departure Date of Disposition Decision: 07/15/19 Time of Disposition Decision: 16:59 DIAGNOSIS: ACS (acute coronary syndrome) Disposition: ADMITTED INPATIENT 09 Certified Medical Emergency: Emergent Condition: Fair Referrals and Follow-Ups: John River MD [Primary Care Provider] - - Critical Care Note This patient required my direct & personal management of CC.: Yes Attestation - Physician/ GRACE Attestation Patient care was provided by Advanced Practice Provider:: No The physician spent face to face time with patient:: Yes Advanced Practice Provider documentation review:: Supervising physician onsite and consulted in the evaluation and care of this patient. The physician did have a face to face encounter with the patient.
[2019-07-15] MEDS ORDERED: TRANDATE PO ONE (15:09)
--- NOTE | 2019-07-15 15:32 | EKG Report ---
Test Performed on : 07/15/2019 3:02:37 PM Test Reason : CP Blood Pressure : / mmHG Vent. Rate : 156 BPM Atrial Rate : 156 BPM P-R Int : 000 ms QRS Dur : 086 ms QT Int : 264 ms P-R-T Axes : 000 -12 104 degrees QTc Int : 425 ms Supraventricular tachycardia. Inferior infarct , age undetermined Possible Anterior infarct (cited on or before 07-FEB-2018) Abnormal ECG When compared with ECG of 16-OCT-2018 13:28, AL interval has decreased Vent. rate has increased BY 108 BPM Inferior infarct is now present ST now depressed in Inferior leads T wave inversion now evident in Lateral leads Unconfirmed Result
--- NOTE | 2019-07-15 15:43 | Diag Imaging Result Doc PS360 ---
EXAM: CHEST-1 VIEW 07/15/2019 HISTORY: chest pain TECHNIQUE: AP portable upright at 1527 COMMENT: There is a hiatal hernia. There is a prominent epicardial fat pad on the left. There is no evidence of acute cardiac or pulmonary disease. Compared to 02/07/2018 there has been no significant change. IMPRESSION: No evidence of acute disease. Electronically signed by Markel Rao 07/15/2019 3:40 PM
[2019-07-15 16:07] LABS: HEMATOCRIT 37.1 % (37.0-47.0); HEMOGLOBIN 11.9 g/dL (12.0-16.0); RBC 4.52 XMIL (4.2-5.4); WBC 9.47 X1000 (4.8-10.8)
[2019-07-15 16:08] LABS: BASO# 0.04 X1000 (0.0-0.2); BASO% 0.4 % (0.0-0.8); EOS# 0.12 X1000 (0.0-0.7); EOS% 1.3 % (0.0-10.0); IMM GRAN# 0.02 X1000 (0.0-0.04); IMM GRAN% 0.2 % (0.0-0.5); LYMPH# 1.84 X1000 (1.2-3.4); LYMPH% 19.4 % (20.5-51.1); MCH 26.3 PG (27-31); MCHC 32.1 g/dL (33-37); MCV 82.1 FL (81-99); MONO# 0.73 X1000 (0.11-0.59); MONO% 7.7 % (1.7-9.3); MPV 10.6 FL (7.4-10.4); NEUT# 6.72 X1000 (1.4-6.5); PLT 270 X1000 (130-400); RDW 17.3 % (11.5-14.5)
[2019-07-15 16:24] LABS: PROTIME 13.7 Seconds (11.0-16.0)
[2019-07-15 16:25] LABS: INR 1.03
[2019-07-15 16:26] LABS: PTT 28.7 Seconds (22.3-41.8)
[2019-07-15 16:27] LABS: AGAP 13; ALB/GLOB RATIO 1.2; ALBUMIN 3.9 g/dL (3.5-5.0); ALKALINE PHOSPHATASE 91 U/L (32-104); BUN 26 mg/dL (8-22); CALCIUM 9.5 mg/dL (8.8-10.2); CHLORIDE 106 mmol/L (98-107); CK PROFILE 48 U/L (24-173); COSMO 290; CREATININE 1.6 mg/dL (0.5-0.9); ESTIMATED GFR 30; GLUCOSE 244 mg/dL (70-104); GOT 21 U/L (10-30); GPT 12 U/L (10-36); POTASSIUM 4.3 mmol/L (3.5-5.1); SODIUM 139 mmol/L (136-145); TCO2 20 mmol/L (25-35); TOTAL BILIRUBIN < 0.15 mg/dL (0.20-1.00); TOTAL PROTEIN 7.2 g/dL (6.3-8.3)
[2019-07-15] MEDS ORDERED: ASPIRIN PO ONE (16:35)
[2019-07-15] MEDS ORDERED: ZOFRAN IM ONE (16:35)
[2019-07-15] MEDS ORDERED: MORPHINE IV ONE (16:54)
[2019-07-15] MEDS ORDERED: TYLENOL PO PRN (17:37)
[2019-07-15] MEDS ORDERED: ZOFRAN IV PRN (17:37)
[2019-07-15] MEDS ORDERED: FLEXERIL PO PRN (17:39)
[2019-07-15] MEDS ORDERED: HUMULIN R SUBQ ONE (17:39)
--- NOTE | 2019-07-15 19:26 | HISTORY AND PHYSICAL ---
CHIEF COMPLAINT: Palpitations and chest pain. HISTORY OF PRESENT ILLNESS: The patient is an 89-year-old white female followed by Dr. Konrad River, presents to the emergency room with complaints of pain in her lower mid sternal area that began shortly after developing some fast heart rate and palpitations. [place] like her heart was running away with her. She began having some pains in the lower sternal area with some shortness of breath and nausea. No vomiting. She has had several left heart catheterizations in the past, which were negative. The last one, she thinks, was around seven years ago, which was negative at [facility]. She has had stress testing maybe about four years ago by her report, which was acceptable. The patient initially was running in the 150 range on her heart rate and appeared to have SVT and patient responded to oral labetalol 100 mg as there was difficulty getting her IV access initially. Heart rate came down to the 70s and 80s with the 100 mg of labetalol given oral. She is on Bystolic 10 mg daily. OTHER MEDICATIONS: At home are: Lovaza 1 gram p.o. b.i.d., Zoloft 50 mg p.o. at bedtime, Nexium 40 mg p.o. daily, Norvasc 10 mg p.o. daily, hydralazine 100 mg p.o. b.i.d., Flexeril 10 mg p.o. t.i.d. p.r.n. muscle spasms, Klonopin 0.5 mg p.o. p.r.n. anxiety, Lasix 40 mg p.o. daily, lisinopril 40 mg p.o. daily, aspirin 325 mg p.o. b.i.d., folic acid 1 mg p.o. daily. ALLERGIES: Zetia, nadolol, pentazocine lactate, INCOMPLETE REPORT - DICTATION ENDS HERE. cc: MD Jono Caicedo MD
--- NOTE | 2019-07-15 19:32 | HISTORY AND PHYSICAL ---
CHIEF COMPLAINT: Palpitations and chest pain. HISTORY OF PRESENT ILLNESS: The patient is an 89-year-old white female followed by Dr. Konrad River, presents to the emergency room with complaints of pain in her lower mid sternal area that began shortly after developing some fast heart rate and palpitations. [place] like her heart was running away with her. She began having some pains in the lower sternal area with some shortness of breath and nausea. No vomiting. She has had several left heart catheterizations in the past, which were negative. The last one, she thinks, was around seven years ago, which was negative at [facility]. She has had stress testing maybe about four years ago by her report, which was acceptable. The patient initially was running in the 150 range on her heart rate and appeared to have SVT and patient responded to oral labetalol 100 mg as there was difficulty getting her IV access initially. Heart rate came down to the 70s and 80s with the 100 mg of labetalol given oral. She is on Bystolic 10 mg daily. OTHER MEDICATIONS: At home are: Lovaza 1 gram p.o. b.i.d., Zoloft 50 mg p.o. at bedtime, Nexium 40 mg p.o. daily, Norvasc 10 mg p.o. daily, hydralazine 100 mg p.o. b.i.d., Flexeril 10 mg p.o. t.i.d. p.r.n. muscle spasms, Klonopin 0.5 mg p.o. p.r.n. anxiety, Lasix 40 mg p.o. daily, lisinopril 40 mg p.o. daily, aspirin 325 mg p.o. b.i.d., folic acid 1 mg p.o. daily. ALLERGIES: Zetia, nadolol, pentazocine lactate, DIAGNOSTICS: EKG done in the ER shows SVT, heart rate is 156, so it is possible J-point elevation or ST elevation anteriorly. Nonspecific inferior ST changes noted. Chest x-ray, no evidence of acute disease. ASSESSMENT: 1. Paroxysmal supraventricular tachycardia. 2. Chest pains. 3. Strong risk factors for coronary artery disease and the patient with known coronary artery disease with history of myocardial infarction 24-25 years ago. 4. Insulin requiring diabetes mellitus. 5. Hypertension. 6. Hypercholesterolemia. 7. History of congestive heart failure. 8. Chronic kidney disease stage 3. 9. Rheumatoid arthritis. 10. Gastroesophageal reflux disease. 11. Gastritis. 12. Depression. PLAN: We will admit the patient to the [facility] and monitor her on telemetry. Heart rate has responded with the low dosage of oral labetalol. So, we will continue her on her home medications except we will add the nitroglycerin paste at low dose. Give her morphine as needed for pain. Check serial cardiac enzymes and troponin levels. Check thyroid function tests. Monitor her electrolytes and kidney function closely. We will ask Cardiology to see the patient in consultation. Continue aspirin treatment she is already on. We will hold her Lantus insulin at this time and we will give her sliding scale insulin with the serial Accu-Cheks as required. cc: Tomer Abarca MD
[2019-07-15] MEDS: APRESOLINE PO SCH (20:38)
[2019-07-15] MEDS: FISH OIL CONCENTRATE PO SCH (20:39)
[2019-07-15] MEDS: NORVASC PO SCH (20:39)
[2019-07-15] MEDS: ASPIRIN PO SCH (20:39)
[2019-07-15] MEDS: ZOLOFT PO SCH (20:39)
[2019-07-15] MEDS: NITROGLYCERIN TOP SCH ×2 (20:48→23:12)
[2019-07-15] MEDS: KLONOPIN PO PRN (21:07)
[2019-07-16] MEDS: PRILOSEC PO SCH ×2 (05:54→06:10)
[2019-07-16] MEDS: NITROGLYCERIN TOP SCH ×4 (05:55→23:22)
[2019-07-16 07:49] LABS: AGAP 9; BUN 30 mg/dL (8-22); CALCIUM 8.6 mg/dL (8.8-10.2); CHLORIDE 107 mmol/L (98-107); CHOLESTEROL 144 mg/dL (0-200); COSMO 285; CREATININE 1.9 mg/dL (0.5-0.9); ESTIMATED GFR 25; GLUCOSE 126 mg/dL (70-104); HDL 39 mg/dL (45-65); LDL 56 mg/dL; POTASSIUM 4.2 mmol/L (3.5-5.1); SODIUM 139 mmol/L (136-145); TCO2 23 mmol/L (25-35); TRIGLYCERIDES 243 mg/dL (35-135); VLDL 49 mg/dL
--- NOTE | 2019-07-16 08:19 | EKG Report ---
Test Performed on : 07/16/2019 08:06:53 AM Test Reason : admitted with CP Blood Pressure : / mmHG Vent. Rate : 054 BPM Atrial Rate : 054 BPM P-R Int : 214 ms QRS Dur : 092 ms QT Int : 426 ms P-R-T Axes : 037 001 011 degrees QTc Int : 403 ms Sinus bradycardia. with 1st degree AV block. Cannot rule out Anterior infarct (cited on or before 16-OCT-2018) Abnormal ECG When compared with ECG of 15-JUL-2019 15:02, (Unconfirmed) [place] interval has increased Vent. rate has decreased BY 102 BPM Criteria for Inferior infarct are no longer present ST no longer depressed in Inferior leads Nonspecific T wave abnormality has replaced inverted T waves in Lateral leads Confirmed by Cole WILD, Kristi Coreas ([id number]) on 07/16/2019 12:07:28 PM
[2019-07-16] MEDS: FOLIC ACID PO SCH (08:32)
[2019-07-16] MEDS: FISH OIL CONCENTRATE PO SCH ×2 (08:32→20:12)
[2019-07-16] MEDS: BYSTOLIC PO SCH ×2 (08:32→16:40)
[2019-07-16] MEDS: APRESOLINE PO SCH ×2 (08:33→20:12)
[2019-07-16] MEDS: ASPIRIN PO SCH ×3 (08:33→20:12)
[2019-07-16] MEDS: MORPHINE IV PRN (08:45)
[2019-07-16] MEDS ORDERED: PRINIVIL PO SCH (09:00)
[2019-07-16] MEDS ORDERED: LASIX PO SCH (09:00)
--- NOTE | 2019-07-16 13:06 | CARDIOLOGY CONSULTATION ---
DATE: 07/16/2019 CONSULTATION REQUESTED BY: Dr. River and Dr. Abarca. REASON FOR CONSULTATION: Palpitations, abnormal troponins. HISTORY OF PRESENT ILLNESS: Mrs Romero is an 89-year-old female who was in her usual state of health until yesterday early afternoon when all of a sudden when she was just laying on the couch, suddenly developed palpitation, fluttering-like, associated with shortness of breath and sweats. She felt dizzy. She immediately notified her daughter who is a registered nurse, and they went to Dr. River's office for evaluation. Dr. River, in turn, realizing what was going on, recommended immediate presentation to [facility] emergency room department. Over there, they did a 12 lead electrocardiogram, this was at 3 p.m. and the ECG shows supraventricular tachycardia with a diffuse ST-T abnormality, rate 156 beats per minute. The patient was given 1 dose of labetalol 100 mg by mouth and eventually she converted within 2 to 3 hours to sinus rhythm. Since yesterday, she has not had any recurrence of arrhythmia other than PVCs that appear to happen frequently. The patient denies having any more chest discomfort or shortness of breath. PAST MEDICAL HISTORY: Positive for palpitations in the past. She has been diagnosed with chronic kidney disease. She has been diagnosed with chronic diastolic heart failure. Back in 2013, the patient underwent a heart catheterization in [place] under the services of Dr. Angel Rutherford for dyspnea. At that time, they found that she had a 30 to 35 percent LAD stenosis proximally. The right coronary artery had irregularities in the proximal midportion less or equal to 20% with normal left ventricular systolic function. Her right heart catheterization showed a pulmonary pressure of 55/23 with a mean of 37. A left ventriculogram showed ejection fraction of 60% at that time. Since then, the patient has been seen by Dr. Joselin Cespedes on 08/27/2015 and that was the last time she was seen by Cardiology. She has followed with Dr. River. She carries a diagnosis of diverticulitis, diabetes mellitus, arthritis, acid reflux. SURGICAL HISTORY: She had both knees replaced, one 24 years ago and the other 12 years ago. She walks with a walker. She has had tubal ligation, back surgery in the 1970s. Hysterectomy, cholecystectomy. She has had skin cancer removed. SOCIAL HISTORY: She is a . She had 5 sons and 1 daughter. One son is . The patient is not a smoker nor a drinker. FAMILY HISTORY: Positive for coronary artery disease in her mother and one of her children. HOME MEDICATIONS: At the time of this admission included: 1. Amlodipine 10 mg daily. 2. Allopurinol 100 daily. 3. Apresoline 0.5 mg daily. 4. Nexium 40 mg daily. 5. Apresoline 100 mg twice a day. 6. Insulin Lantus 20 units twice a day. 7. Zestril 40 mg daily. 8. Lovaza 2 g twice a day. 9. Sertraline 50 mg at bedtime. 10. Tramadol 37.5-325 every 8 hours. ALLERGIES: Nadolol,Talwin, propranolol, rosuvastatin, simvastatin, nifedipine, hydromorphone, iodinated contrast media, minoxidil, atenolol, clonidine, rosiglitazone, and sestamibi. REVIEW OF SYSTEMS: Other than her chronic arthritis of the legs that limits her ambulation, no significant cardiovascular complaints in the recent past up until the onset of symptoms. PHYSICAL EXAMINATION: Vital Signs: Right now, blood pressure is 128/68, temperature 97.6 degrees, pulse 54, respirations 14. General: She is awake, elderly, in no distress. HEENT: Unremarkable. Chest: Sounds clear to auscultation and percussion. Heart: Sounds are regular with extrasystoles. Abdomen: Nontender. Extremities: Showed palpable pulses. No peripheral edema. Neurological: Nonfocal. Moves all 4 extremities. LABORATORY DATA: White cell count is 9470, hemoglobin 11.9 g percent, hematocrit 37.1%. PT 13.7, PTT 28.7. Sodium 139, potassium 4.2, BUN 30, creatinine 1.9. Troponins have been checked 4 times, 0.094, 0.106, 0.095 and 0.078. DIAGNOSTIC DATA: Her EKG this morning at 8 a.m. shows sinus rhythm, sinus bradycardia, first- degree AV block, no significant ST-T abnormalities. A chest x-ray done yesterday showed no evidence of acute disease. IMPRESSION: 1. Patient presented with sudden onset of palpitations, chest tightness. Evidence of cardiac arrhythmia on presentation, supraventricular tachycardia, classic on first EKG, converted to sinus rhythm with premature ventricular contractions. 2. Elevation of troponin, possibly non ST myocardial infarction. 3. Coronary heart disease, history of, per last heart catheterization in 2013, mild in severity. 4. History of pulmonary hypertension also noted in 2014. 5. Chronic kidney disease. 6. Hyperlipidemia. 7. Diabetes mellitus type 2. 8. History of hypertension. 9. History of arthritis. RECOMMENDATION: At this time, I agree with Dr. River to perform a myocardial perfusion stress test as a way of a screening her situation. If that stress test is frankly abnormal, then we need to pursue with heart catheterization. We will have to prepare her with bicarbonate and also with prednisone and Benadryl because she alleges to be allergic to iodine contrast. Further advice will be forthcoming. Thank you for the opportunity to participate in her evaluation. We will review the results of the stress test and also of the other tests that have been requested. cc: MD Jono Rocha MD [facility]
[2019-07-16] MEDS ORDERED: LEXISCAN ONE (14:10)
[2019-07-16] MEDS: ZOLOFT PO SCH (20:12)
[2019-07-16] MEDS: NORVASC PO SCH (20:12)
[2019-07-16] MEDS: KLONOPIN PO PRN (20:37)
--- NOTE | 2019-07-16 20:57 | PROGRESS NOTE ---
DATE: 07/16/2019 SUBJECTIVE: Patient was admitted yesterday. 89-year-old white female was seen in my office yesterday afternoon in the parking lot with chest pain and palpitations. Patient was transferred to the emergency room. Patient was admitted by Dr. Abarca. She has SVT and subsequently converted to sinus. She has no chest pain. Positive troponin. She has hyperkalemia due to TIFFANIE inhibitors. I stopped the lisinopril last week. PAST MEDICAL HISTORY: Reviewed. PAST SURGICAL HISTORY: Reviewed. MEDICINES: Reviewed. ALLERGIES: Reported in the chart. REVIEW OF SYSTEMS: HEENT: No headache, no vision problem, no earache, no sore throat. Neck: No goiter, no lymphadenopathy. Cardiopulmonary: No chest pain, no palpitations, no PND, no orthopnea. GI: No nausea, vomiting, abdominal pain. Neurologic: No neurological deficits. PHYSICAL EXAMINATION: Vital Signs: Temperature is 98 degrees, pulse 63, blood pressure 142/58. HEENT: Atraumatic, normocephalic. Pupils equal, react to light. TMs are normal. Nose and throat within normal limits. Neck: Supple. No lymphadenopathy. No goiter. Chest: Bilateral air entry. Heart: Sounds are regular. Abdomen: Belly is soft, nontender. Neurologic: No neurological deficits. Repeat EKG: Normal sinus bradycardia, nothing acute. Initial EKG yesterday: SVT. CBC: White cell count 9.4, hematocrit 37, platelet 270,000. PT/INR is normal. SMA 7: Sodium 139, potassium 4.2, BUN 30, creatinine 1.9, glucose 209. CK was negative. Troponin was coming back normal. Cholesterol 240. Thyroid function tests were normal. Chest x-ray: No evidence of acute disease. ASSESSMENT AND PLAN: 1. Supraventricular tachycardia with positive troponin, converted to sinus with labetalol, and I appreciated Dr. Harrison's consult. Will schedule for myocardial perfusion scan. 2. Hyperkalemia, with chronic kidney disease. Discontinue lisinopril. 3. Hypertension, on Norvasc 10 mg daily, hydralazine 100 p.o. b.i.d., Bystolic 10 daily. 4. Change the Lasix to every other day. 5. Chronic kidney disease, stable. 6. Depression, on Zoloft. 7. Anxiety, on Klonopin as needed. 8. Continue on aspirin. 9. Diabetes. Since the patient is on n.p.o., will hold insulin. 10. Status post right hip replacement, stable. 11. Based on the cardiac workup, further recommendations will be followed. LEVEL OF DOCUMENTATION: 35 minutes. cc: Jono River MD
[2019-07-17] MEDS: NITROGLYCERIN TOP SCH ×4 (05:28→23:00)
[2019-07-17] MEDS: PRILOSEC PO SCH (06:06)
[2019-07-17] MEDS: ASPIRIN PO SCH ×2 (08:37→20:27)
[2019-07-17] MEDS: FOLIC ACID PO SCH (08:37)
[2019-07-17] MEDS: FISH OIL CONCENTRATE PO SCH ×2 (08:37→20:27)
[2019-07-17] MEDS: APRESOLINE PO SCH ×2 (08:37→20:27)
[2019-07-17] MEDS: BYSTOLIC PO SCH (08:38)
[2019-07-17] MEDS ORDERED: LASIX PO SCH (09:00)
--- NOTE | 2019-07-17 09:48 | Diag Imaging Result Document ---
PROCEDURE NAME: MYOCARDIAL PERF SCAN, STR/REST - 07/16/2019 STUDY: Lexiscan Cardiolite stress test. Lexiscan was infused per standard protocol. There was no chest pain. Stress electrocardiogram was negative for ischemia. Occasional premature ventricular beats were normal. 5.1 mCi of Cardiolite was injected for the rest study. 9.8 mCi of Cardiolite was injected for the stress phase. Images were obtained in standard view. Images revealed normal left ventricular cavity size. There is better tracer uptake on stress compared to rest. There is large size severe grade fixed defect in the left ventricular apex diagnostic of scar. There is no evidence of ischemia. Left ventricular ejection fraction by gated SPECT was 60%. There is apical hypokinesis. CONCLUSION: 1. No chest pain. 2. Negative Lexiscan stress electrocardiogram. 3. Myocardial perfusion images reveal severe grade large sized fixed defect in the left ventricular apex diagnostic of scar. There is no evidence of ischemia. 4. Left ventricular ejection fraction by gated SPECT was 60%. There is apical hypokinesis. cc: MD Brian Aranda MD [facility]
[2019-07-17] MEDS: LOPRESSOR PO SCH ×2 (13:22→20:24)
--- NOTE | 2019-07-17 17:54 | CARDIOLOGY PROGRESS NOTE ---
DATE: 07/17/2019 CHIEF COMPLAINT: Irregular heartbeat, abnormal troponins. SUBJECTIVE: Ms. Romero is feeling much better today. She has no complaints. OBJECTIVE: Vital Signs: Blood pressure is 147/71, temperature 97.6, pulse 63, respirations 18. General: She is awake, alert, in no distress. HEENT: Unremarkable. Chest : Clear to auscultation and percussion. Cardiovascular: Regular rate and rhythm. No gallop or murmur. Abdomen: Nontender. Extremities: Good pulses. No edema. Neurologic: Follows commands. Moves all 4 extremities. BLOOD WORK: Her troponins became negative. Her stress test shows an apical scar with preserved ejection fraction of 60%. No ischemia. IMPRESSION: 1. Patient who presented with supraventricular tachycardia. This has not recurred. 2. Possible non-ST myocardial infarction. 3. History of coronary heart disease, mild. 4. Remote history of myocardial infarction. 5. History of pulmonary hypertension. 6. Chronic kidney disease. RECOMMENDATIONS: 1. At this time, since her stress test shows a fixed defect, and the patient states that she has had a previous heart attack in the past, I believe that she will not benefit by pursuing heart catheterization. In addition, she is allergic to IV contrast dye, and she has chronic kidney disease. The best course of action would be to put her on a beta teena and to keep her on aspirin and follow her at the office as scheduled. 2. From my viewpoint, she may be discharged home at the earliest convenience of Dr. River. 3. Her LDL cholesterol, by the way, is actually optimal, so we do not need to make adjustments to her cholesterol-lowering medications. cc: MD Jono Rocha MD [facility]
[2019-07-17] MEDS: NORVASC PO SCH (20:27)
[2019-07-17] MEDS: ZOLOFT PO SCH (20:27)
[2019-07-17] MEDS ORDERED: XANAX PO PRN (21:20)
[2019-07-17] MEDS ORDERED: ZYLOPRIM PO PRN (21:20)
--- NOTE | 2019-07-17 21:37 | PROGRESS NOTE ---
DATE: 07/17/2019 SUBJECTIVE: The patient is doing very well. No chest pain. Waiting for stress test result. Based on that, whether she needs a left heart catheterization or not. Results are not released. REVIEW OF SYSTEMS: The rest of the review of systems is normal. OBJECTIVE: On exam, temperature is 97 degrees, pulse 56. Vital signs are stable. HEENT exam within normal limits. Neck is supple. No lymphadenopathy. No goiter. Belly is soft, nontender. No neurological deficits. ASSESSMENT AND PLAN: 1. Supraventricular tachycardia, currently stable. 2. Waiting for stress test results. Based on that, further results will follow. 3. Slowly advance the diet. 4. Reconcile home medications. 5. Will discuss with Dr. Harrison, recommendations, and will follow up. Level of documentation 25 minutes. cc: Jono River MD
[2019-07-17] MEDS: MORPHINE IV PRN (22:18)
[2019-07-17] MEDS: LANTUS INSULIN SUBQ SCH (22:27)
[2019-07-18] MEDS: NITROGLYCERIN TOP SCH (04:49)
[2019-07-18] MEDS: PRILOSEC PO SCH ×2 (05:29→05:59)
[2019-07-18 07:18] VITALS: BP 143/63
[2019-07-18] MEDS: FOLIC ACID PO SCH (08:07)
[2019-07-18] MEDS: FISH OIL CONCENTRATE PO SCH (08:07)
[2019-07-18] MEDS: ASPIRIN PO SCH (08:07)
[2019-07-18] MEDS: LANTUS INSULIN SUBQ SCH (08:08)
[2019-07-18] MEDS: LOPRESSOR PO SCH (08:08)
[2019-07-18] MEDS: APRESOLINE PO SCH (08:08)
[2019-07-18] MEDS: BYSTOLIC PO SCH (08:16)
[2019-07-18] MEDS ORDERED: PNEUMOVAX 23 IM ONE (09:19)
--- NOTE | 2019-07-19 05:38 | DISCHARGE SUMMARY ---
ADMISSION DATE: 07/15/2019 DISCHARGE DATE: 07/18/2019 DISCHARGING DIAGNOSES: Palpitations due to supraventricular tachycardia transient stable. SECONDARY DIAGNOSES: 1. Hyperkalemia due to lisinopril. 2. Chronic kidney disease. 3. Type 2 diabetes. 4. 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 5. Chronic L2 compression fracture. 6. Acid reflux disease. 7. Gout. 8. Hypertension. 9. Chronic suppurative otitis media left ear. 10. Osteoarthritis. 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 12. Bilateral knee replacement. 13. Right anterior hip replacement. CONSULTATIONS: Dr. Harrison. PROCEDURES: Myocardial perfusion scan. No chest pain. Negative Lexiscan stress with EKG. No reversible defects. Nevertheless, large fixed defect in the left ventricular apex. EF is 60% and apical hypokinesis noted. BRIEF HISTORY: Please see the H and P that was done by Dr. Abarca. In brief, she is an 89-year- old white female with noncritical CAD from the remote history with the above underlying problems who basically came in to the hospital from my office with chest pain and palpitations. Initial EKG with SVT. The patient was given labetalol, subsequently converting to sinus. Admitted in step-down unit. The patient was seen by livestock auctioneer. She has known history of chronic kidney disease. Troponin was positive. Serial cardiac enzymes and CK were negative. During the hospital course, the patient had a myocardial perfusion scan with normal EF with apical hypokinesis. Currently asymptomatic. She is not very mobile. Because of the underlying osteoarthritis in the C-spine, lumbar spine, right hip, bilateral knee and rheumatoid arthritis. Dr. Harrison recommended continuing on nitrates, beta blockers, and optimize the treatment for SVT as long as she is asymptomatic. He does not recommend left heart catheterization unless there are EKG changes because the diet can cause the worsening of the kidney function tests. The patient agreeable to weighing the pros and cons and continuing to treat medically. Rest of the hospital course was uneventful. She also had hyperkalemia due to TIFFANIE inhibitors, which was stopped. LABORATORY STUDIES: 1. CBC: White cell count 9.4, hematocrit 37, platelets 270,000, PT 13, INR 1.0, sodium 139, potassium 4.2, BUN 30, creatinine 1.9, glucose 126, triglycerides 243, cholesterol 144, LDL 56, and free T4 thyroid function tests were normal. 2. Chest x-ray with no evidence of acute disease. There is a hiatal hernia noted and prominent epicardial fat pad on the left side. DISCHARGE INSTRUCTIONS: The patient was discharged home with the following instructions. 1. Lovaza 2 g p.o. b.i.d. 2. Zoloft 50 daily. 3. Nexium 40 daily. 4. Amlodipine 10 daily. 5. Hydralazine 100 t.i.d. 6. Lantus 20 units subcutaneous b.i.d. 7. Allopurinol 100 daily. 8. Ultracet q.8 p.r.n. pain. 9. Xanax 0.5 as needed. 10. Metoprolol 25 b.i.d. 11. Aspirin 325 daily, unable to tolerate statin drugs. 12. Keep the LDL less than 100. Chronic kidney disease unable to tolerate lisinopril with the hyperkalemia, and actually the potassium levels were normal. 13. Follow up in my office in 10 days. cc: MD Brian Nunez MD
== END 2019-07-18 10:12 | disposition home or self-care (01) | DRG 309 ==
LOC: ED 14:57 → 2N 17:43
PROVIDERS: ADMIT Internal Medicine; ATTEND Internal Medicine